=== PATIENT | female | born 1945 | race Caucasian/White ===

== ENCOUNTER → 2016-10-21 | Outpatient (REF) | payer MEDICARE, OTHER ==
[2016-10-21 16:01] LABS: BASO # 0.1 K/mm3 (0.0-0.2); BASO % 0.8 % (0.0-1.0); EOS # 0.2 K/mm3 (0.0-0.50); EOS % 1.5 % (0.0-3.0); LARGE UNSTAINED CELL # 0.2 K/mm3 (0.0-0.4); LARGE UNSTAINED CELL % 1.4 % (0.0-4.0); LYMPH % 22.1 % (24.0-44.0); MEAN CORPUSCULAR HEMOGLOBIN 28.4 pg (27.0-33.0); MEAN CORPUSCULAR HGB CONC 33.2 g/dl (32.0-36.5); MEAN CORPUSCULAR VOLUME 85.5 fl (80.0-96.0); MONO % 8.1 % (0.0-5.0); NEUTROPHILS # 8.3 K/mm3 (1.8-7.7); NEUTROPHILS % 66.1 % (36.0-66.0); PLATELET COUNT, AUTOMATED 270 k/mm3 (150-450); RED CELL DISTRIBUTION WIDTH 14.4 % (11.5-14.5); WHITE BLOOD COUNT 12.5 K/mm3 (4.0-10.0)
[2016-10-21 16:03] LABS: ALBUMIN 3.4 GM/DL (3.2-5.2); ALBUMIN/GLOBULIN RATIO 0.94 (1.00-1.93); ALKALINE PHOSPHATASE 73 U/L (45-117); ALT/SGPT 17 U/L (12-78); AMYLASE 45 U/L (25-115); ANION GAP 11 MEQ/L (8-16); AST/SGOT 9 U/L (15-37); BILIRUBIN,TOTAL 0.9 MG/DL (0.2-1.0); BLOOD UREA NITROGEN 16 MG/DL (7-18); CALCIUM LEVEL 8.9 MG/DL (8.8-10.2); CARBON DIOXIDE LEVEL 28 MEQ/L (21-32); CHLORIDE LEVEL 102 MEQ/L (98-107); GLOMERULAR FILTRATION RATE > 60.0 (>39); GLUCOSE, FASTING 87 MG/DL (83-110); POTASSIUM SERUM 3.5 MEQ/L (3.5-5.1); SODIUM LEVEL 141 MEQ/L (136-145)
== END ==
LOC: M LABDRAW1 15:21
PROVIDERS: ATTEND Family Medicine
DX: K57.92 Diverticulitis of intestine, part unspecified, without perforation or abscess without bleeding (principal)
CPT/HCPCS: 36415; 80053; 82150; 83690; 85025; G0463

== ENCOUNTER → 2016-10-25 | Outpatient (REF) | payer MEDICARE, OTHER ==
[2016-10-25 11:39] LABS: BASO % 0.7 % (0.0-1.0); EOS # 0.3 K/mm3 (0.0-0.50); EOS % 5.1 % (0.0-3.0); LARGE UNSTAINED CELL # 0.2 K/mm3 (0.0-0.4); LARGE UNSTAINED CELL % 3.3 % (0.0-4.0); LYMPH # 1.6 K/mm3 (1.5-4.5); LYMPH % 25.7 % (24.0-44.0); MEAN CORPUSCULAR HEMOGLOBIN 29.3 pg (27.0-33.0); MEAN CORPUSCULAR HGB CONC 33.8 g/dl (32.0-36.5); MEAN CORPUSCULAR VOLUME 86.8 fl (80.0-96.0); MONO # 0.5 K/mm3 (0.0-0.8); MONO % 8.1 % (0.0-5.0); NEUTROPHILS # 3.6 K/mm3 (1.8-7.7); NEUTROPHILS % 57.2 % (36.0-66.0); PLATELET COUNT, AUTOMATED 340 k/mm3 (150-450); RED CELL DISTRIBUTION WIDTH 13.1 % (11.5-14.5); WHITE BLOOD COUNT 6.2 K/mm3 (4.0-10.0)
== END ==
LOC: M SFHCPLAZ 08:19
PROVIDERS: ATTEND Physician Assistant Medical
DX: K57.92 Diverticulitis of intestine, part unspecified, without perforation or abscess without bleeding (principal)
CPT/HCPCS: 36415; 85025; G0463

== ENCOUNTER 2016-11-20 18:29 | Inpatient (IN) | payer MEDICARE, OTHER ==
[~2016-11-20] VITALS: Ht 152.4 cm; Wt 85.7 kg
[2016-11-20 20:03] VITALS: BP 121/63
[2016-11-20] MEDS ORDERED: NORCO, ANEXSIA 5/325MG TABLET (HYDROcodone/ACETAMINOPHEN) PO PRN (23:30)
[2016-11-20] MEDS ORDERED: IPRATROPIUM 0.5MG/ALBUTEROL 2.5MG INH SOL UD 3ML (DUONEB)(J7620) NEB PRN (23:30)
[2016-11-21] VITALS (10 sets, daily range): BP systolic 92–168; BP diastolic 58–79
[2016-11-21] MEDS: LR 1,000 ML IV SCH ×4 (00:01→20:06)
[2016-11-21] MEDS: MORPHINE 4 MG/ML 1ML SYRINGE IV PRN ×2 (00:01→01:45)
[2016-11-21 00:03] LABS: ANION GAP 9 MEQ/L (8-16); BLOOD UREA NITROGEN 12 MG/DL (7-18); CALCIUM LEVEL 7.5 MG/DL (8.8-10.2); CARBON DIOXIDE LEVEL 21 MEQ/L (21-32); CHLORIDE LEVEL 109 MEQ/L (98-107); CREATININE FOR GFR 0.77 MG/DL (0.55-1.02); GLOMERULAR FILTRATION RATE > 60.0 (>39); GLUCOSE, FASTING 113 MG/DL (83-110); POTASSIUM SERUM 3.5 MEQ/L (3.5-5.1); SODIUM LEVEL 139 MEQ/L (136-145)
[2016-11-21 00:07] LABS: BASO # 0.1 K/mm3 (0.0-0.2); BASO % 0.5 % (0.0-1.0); EOS # 0.2 K/mm3 (0.0-0.50); EOS % 1.3 % (0.0-3.0); LARGE UNSTAINED CELL # 0.2 K/mm3 (0.0-0.4); LARGE UNSTAINED CELL % 1.3 % (0.0-4.0); LYMPH # 1.5 K/mm3 (1.5-4.5); LYMPH % 9.2 % (24.0-44.0); MEAN CORPUSCULAR HEMOGLOBIN 28.2 pg (27.0-33.0); MEAN CORPUSCULAR VOLUME 88.1 fl (80.0-96.0); MONO # 0.6 K/mm3 (0.0-0.8); MONO % 4.4 % (0.0-5.0); NEUTROPHILS # 11.6 K/mm3 (1.8-7.7); NEUTROPHILS % 83.2 % (36.0-66.0); PLATELET COUNT, AUTOMATED 182 k/mm3 (150-450); RED CELL DISTRIBUTION WIDTH 14.3 % (11.5-14.5); WHITE BLOOD COUNT 13.9 K/mm3 (4.0-10.0)
[2016-11-21] MEDS ORDERED: HYDR25TAB PO (00:24)
[2016-11-21] MEDS ORDERED: IRBE75TA5 PO (00:24)
[2016-11-21] MEDS ORDERED: PROA1AER INH (00:24)
[2016-11-21] MEDS ORDERED: LIPI10TA PO (00:24)
[2016-11-21] MEDS ORDERED: PAXI10TA2 PO (00:24)
[2016-11-21] MEDS ORDERED: BIMA01SOL OU (00:24)
[2016-11-21] MEDS ORDERED: SING10TA32 PO (00:24)
[2016-11-21] MEDS ORDERED: VITA100066 PO (00:24)
[2016-11-21] MEDS ORDERED: OMEP20CA3 PO (00:24)
[2016-11-21] MEDS ORDERED: GASTROGRAFIN SOLUTION 30ML PO ONE (01:00)
[2016-11-21] MEDS ORDERED: GASTROGRAFIN SOLUTION 30ML (Q9963) PO ONE (01:30)
--- NOTE | 2016-11-21 03:20 | REPUSA ---
CLINICAL HISTORY: Assess for perforation TECHNIQUE: CT of the abdomen and pelvis was performed without intravenous contrast by obtaining julian guous CT axial slices from level of the heart to the proximal femoral diaphyses. Multiplanar reformat s were obtained in the coronal and sagittal projections. COMPARISON: None FINDINGS : LOWER CHEST: The lung bases history trace effusions otherwise unremarkable. Heart is normal in size. No pleural or pericardial effusion is seen. LIVER: The liver is normal in size and contour with a subcentimeter segment 6 low density lesion whic h is probable cyst. BILIARY SYSTEM: No intrahepatic biliary ductal dilatation is seen. The common duct is normal in calib er. The gallbladder is unremarkable with no focal or diffuse wall thickening seen. No pericholecystic fluid is seen. No calcified biliary calculi are identified. PANCREAS: The pancreas is normal in size, contour and density. No suspicious cystic lesion or ductal dilatation. SPLEEN: Normal in size with no suspicious cystic lesion. ADRENALS: Mild symmetric thickening otherwise are unremarkable. KIDNEYS/URETERS: The kidneys are normal in size. No calcified renal or ureteral calculi are seen. No hydroureteronephrosis. 5.0 cm right upper pole cortical cyst. URINARY BLADDER: The urinary bladder is unremarkable without calcified stone, wall thickening or dive rticula seen. UTERUS/ADNEXA: Few calcifications noted along the anterior upper body and fundus likely from small fi broids. Appendix are grossly within normal size limits. AORTA AND ILIAC ARTERIES: No aneurysmal dilatation of the aorta or iliac arteries is seen. LYMPH NODES: No enlarged adenopathy. GASTROINTESTINAL: Stomach, duodenum, small bowel, appendix on axial image [id number] are normal in caliber . There is distal colonic diverticulosis more prominently in the sigmoid colon. PERITONEUM/RETROPERITONEUM: There are multiple foci of free air in the lower esophageal, perigastric, perihepatic, pericholecystic, omental, and left lower quadrant mesosigmoid regions with air-fluid co llections measuring up to 4.1 x 2.0 cm and surrounding mesosigmoid stranding. ABDOMINAL/PELVIC WALL: No hernia is identified. OSSEOUS STRUCTURES/SOFT TISSUES: No suspicious osseous lesion, acute fracture, or soft tissue abnorma lity. L4-L5 facet degenerative changes. IMPRESSION : 1. Findings of perforated diverticulitis with multiple foci of pneumoperitoneum an left pelvic collec tions of hydropneumoperitoneum. 2. Trace bilateral effusion. 3. Right hepatic lobe and right renal cysts. 4. Few calcifications noted along the anterior upper body and fundus likely from small fibroids.
[2016-11-21] MEDS: CIPROFLOXACIN 400 MG in APPROPRIATE DILUENT 1 EA IV SCH ×2 (04:37→17:15)
[2016-11-21] MEDS: metroNIDAZOLE 500 MG in APPROPRIATE DILUENT 1 EA IV SCH ×3 (05:37→20:06)
[2016-11-21] MEDS ORDERED: ROCURONIUM BROMIDE 50 MG/5 ML VIAL As Ordered ONE (06:13)
[2016-11-21] MEDS ORDERED: PROPOFOL 200 MG/20 ML VIAL As Ordered ONE (06:13)
[2016-11-21] MEDS ORDERED: fentaNYL 250 MCG/5 ML INJECTION (J3010) As Ordered ONE (06:13)
[2016-11-21] MEDS ORDERED: MIDAZOLAM INJ 2 MG/2 ML VIAL (J2250) As Ordered ONE (06:13)
[2016-11-21] MEDS ORDERED: LIDOCAINE 2% INJ 100 MG/5 ML SDV (FOR ANES.) As Ordered ONE (06:13)
[2016-11-21] MEDS ORDERED: PHENYLephrine HCL 500 MCG/5 ML (100MCG/ML) SYRINGE (J2370) As Ordered ONE (07:24)
[2016-11-21] MEDS ORDERED: HYDROmorphone HCL 2 MG/ML 1ML VIAL (J1170) As Ordered ONE (07:41)
--- NOTE | 2016-11-21 07:48 | ECGEPIP ---
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
[2016-11-21] MEDS ORDERED: BUPIVACAINE HCL 0.25% 30 ML VIAL As Ordered ONE (08:14)
[2016-11-21] MEDS ORDERED: BUPIVACAINE LIPOSOME/PF 1.3% 20 ML VIAL (13.3MG/ML)(EXPAREL) As Ordered ONE (08:14)
[2016-11-21] MEDS ORDERED: hydroCHLOROthiazide 25 MG TAB PO SCH (09:00)
[2016-11-21] MEDS ORDERED: NEOSTIGMINE 1MG/ML 5 ML SYRINGE (J2710) As Ordered ONE (09:02)
[2016-11-21] MEDS ORDERED: ONDANSETRON 4MG/2ML VIAL (J2405) As Ordered ONE (09:02)
[2016-11-21] MEDS ORDERED: GLYCOPYRROLATE INJ 0.2 MG/ML 2 ML VIAL As Ordered ONE (09:03)
[2016-11-21] MEDS ORDERED: BUPIVACAINE LIPOSOME/PF 1.3% 20 ML VIAL (13.3MG/ML)(EXPAREL) XX ONE (09:15)
[2016-11-21] MEDS ORDERED: BUPIVACAINE HCL 0.25% 30 ML VIAL SC ONE (09:17)
[2016-11-21] MEDS ORDERED: MORPHINE PCA 1MG/ML 100ML CADD As Ordered ONE (10:01)
[2016-11-21] MEDS ORDERED: MORPHINE PCA 1MG/ML 100ML CADD IV PRN (10:30)
[2016-11-21] MEDS ORDERED: HYDROmorphone HCL 1 MG/ML SYRINGE (J1170) IV PRN (10:30)
[2016-11-21] MEDS ORDERED: diphenhydrAMINE INJ 50MG/ML VIAL (J1200) IV PRN (10:30)
[2016-11-21] MEDS ORDERED: ONDANSETRON 4MG/2ML VIAL (J2405) IV PRN ×2 (10:30)
[2016-11-21] MEDS ORDERED: fentaNYL 100 MCG/2 ML INJECTION (J3010) IV PRN (10:30)
[2016-11-21] MEDS ORDERED: NALBUPHINE HCL 10 MG/ML AMP (J2300) IV PRN (10:30)
[2016-11-21] MEDS ORDERED: EPIDURAL/PCA KEYS XX PRN (10:30)
[2016-11-21] MEDS ORDERED: NALOXONE INJ 0.4 MG/1 ML VIAL (J2310) IV PRN (10:30)
[2016-11-21] MEDS ORDERED: METOCLOPRAMIDE INJ 10MG/2ML VIAL (J2765) IV PRN (10:30)
[2016-11-21] MEDS ORDERED: LR 1,000 ML IV SCH (10:30)
[2016-11-21] MEDS: IRBESARTAN 75MG TABLET PO SCH (11:34)
[2016-11-21] MEDS: FLUTICASONE PROP 0.05% NASAL SPRAY 16 GM (FLONASE) SCH (11:35)
[2016-11-21] MEDS: PANTOPRAZOLE 40MG INJ (PROTONIX) (C9113) IV SCH (11:41)
[2016-11-21] MEDS: ACETAMINOPHEN TAB 650MG DOSE (2X325MG) PO PRN (17:16)
[2016-11-22 02:00] VITALS: BP 118/61
[2016-11-22] MEDS: CIPROFLOXACIN 400 MG in APPROPRIATE DILUENT 1 EA IV SCH ×2 (03:16→15:37)
[2016-11-22] MEDS: metroNIDAZOLE 500 MG in APPROPRIATE DILUENT 1 EA IV SCH ×3 (04:55→21:00)
[2016-11-22 06:00] VITALS: BP 117/69
[2016-11-22 06:12] LABS: BASO % 0.2 % (0.0-1.0); EOS # 0.2 K/mm3 (0.0-0.50); EOS % 1.8 % (0.0-3.0); LARGE UNSTAINED CELL # 0.3 K/mm3 (0.0-0.4); LARGE UNSTAINED CELL % 2.8 % (0.0-4.0); LYMPH # 1.5 K/mm3 (1.5-4.5); LYMPH % 14.8 % (24.0-44.0); MEAN CORPUSCULAR HEMOGLOBIN 27.6 pg (27.0-33.0); MEAN CORPUSCULAR HGB CONC 31.4 g/dl (32.0-36.5); MEAN CORPUSCULAR VOLUME 88.1 fl (80.0-96.0); MONO # 0.7 K/mm3 (0.0-0.8); MONO % 7.4 % (0.0-5.0); NEUTROPHILS # 7.2 K/mm3 (1.8-7.7); PLATELET COUNT, AUTOMATED 172 k/mm3 (150-450); RED CELL DISTRIBUTION WIDTH 13.9 % (11.5-14.5); WHITE BLOOD COUNT 9.8 K/mm3 (4.0-10.0)
[2016-11-22 06:33] LABS: ANION GAP 9 MEQ/L (8-16); BLOOD UREA NITROGEN 13 MG/DL (7-18); CALCIUM LEVEL 7.4 MG/DL (8.8-10.2); CARBON DIOXIDE LEVEL 23 MEQ/L (21-32); CHLORIDE LEVEL 109 MEQ/L (98-107); CREATININE FOR GFR 0.74 MG/DL (0.55-1.02); GLOMERULAR FILTRATION RATE > 60.0 (>39); GLUCOSE, FASTING 107 MG/DL (83-110); POTASSIUM SERUM 3.8 MEQ/L (3.5-5.1); SODIUM LEVEL 141 MEQ/L (136-145)
[2016-11-22] MEDS: LR 1,000 ML IV SCH ×2 (06:43→13:30)
[2016-11-22] MEDS: IRBESARTAN 75MG TABLET PO SCH (09:00)
[2016-11-22 10:00] VITALS: BP 118/58
[2016-11-22] MEDS: FLUTICASONE PROP 0.05% NASAL SPRAY 16 GM (FLONASE) SCH (10:17)
[2016-11-22] MEDS: PANTOPRAZOLE 40MG INJ (PROTONIX) (C9113) IV SCH (10:17)
[2016-11-22 14:00] VITALS: BP 114/56
[2016-11-22 18:00] VITALS: BP 134/69
[2016-11-22 22:00] VITALS: BP 149/76
[2016-11-23] MEDS: LR 1,000 ML IV SCH ×3 (00:23→15:32)
[2016-11-23 02:00] VITALS: BP 119/61
[2016-11-23] MEDS: CIPROFLOXACIN 400 MG in APPROPRIATE DILUENT 1 EA IV SCH ×2 (03:20→15:32)
[2016-11-23] MEDS: metroNIDAZOLE 500 MG in APPROPRIATE DILUENT 1 EA IV SCH ×3 (04:43→20:41)
[2016-11-23 06:00] VITALS: BP 133/61
[2016-11-23 06:23] LABS: BASO % 0.2 % (0.0-1.0); EOS # 0.3 K/mm3 (0.0-0.50); LARGE UNSTAINED CELL # 0.2 K/mm3 (0.0-0.4); LARGE UNSTAINED CELL % 2.6 % (0.0-4.0); LYMPH # 1.5 K/mm3 (1.5-4.5); LYMPH % 14.5 % (24.0-44.0); MEAN CORPUSCULAR HEMOGLOBIN 28.3 pg (27.0-33.0); MEAN CORPUSCULAR HGB CONC 32.2 g/dl (32.0-36.5); MEAN CORPUSCULAR VOLUME 87.9 fl (80.0-96.0); MONO # 0.9 K/mm3 (0.0-0.8); MONO % 10.2 % (0.0-5.0); NEUTROPHILS # 6.1 K/mm3 (1.8-7.7); NEUTROPHILS % 69.5 % (36.0-66.0); PLATELET COUNT, AUTOMATED 218 k/mm3 (150-450); WHITE BLOOD COUNT 8.8 K/mm3 (4.0-10.0)
[2016-11-23 06:54] LABS: ANION GAP 9 MEQ/L (8-16); BLOOD UREA NITROGEN 8 MG/DL (7-18); CALCIUM LEVEL 7.2 MG/DL (8.8-10.2); CARBON DIOXIDE LEVEL 24 MEQ/L (21-32); CHLORIDE LEVEL 106 MEQ/L (98-107); CREATININE FOR GFR 0.65 MG/DL (0.55-1.02); GLOMERULAR FILTRATION RATE > 60.0 (>39); GLUCOSE, FASTING 105 MG/DL (83-110); POTASSIUM SERUM 3.6 MEQ/L (3.5-5.1); SODIUM LEVEL 139 MEQ/L (136-145)
[2016-11-23 10:00] VITALS: BP 143/72
[2016-11-23] MEDS: FLUTICASONE PROP 0.05% NASAL SPRAY 16 GM (FLONASE) SCH (10:40)
[2016-11-23] MEDS: PANTOPRAZOLE 40MG INJ (PROTONIX) (C9113) IV SCH (10:40)
[2016-11-23] MEDS: IRBESARTAN 75MG TABLET PO SCH (10:41)
[2016-11-23 14:00] VITALS: BP 165/86
[2016-11-23] MEDS: KETOROLAC 30 MG/ML VIAL (J1885) IV SCH ×2 (17:20→21:57)
[2016-11-23 18:00] VITALS: BP 143/70
[2016-11-23] MEDS: PARoxetine 10MG TABLET PO SCH (20:40)
[2016-11-23 22:00] VITALS: BP 122/64
[2016-11-24] MEDS: KETOROLAC 30 MG/ML VIAL (J1885) IV SCH ×4 (03:57→22:00)
[2016-11-24] MEDS: CIPROFLOXACIN 400 MG in APPROPRIATE DILUENT 1 EA IV SCH ×2 (04:09→16:05)
[2016-11-24] MEDS: metroNIDAZOLE 500 MG in APPROPRIATE DILUENT 1 EA IV SCH ×2 (05:14→14:00)
[2016-11-24 06:00] VITALS: BP 157/75
[2016-11-24 06:15] LABS: BASO % 0.3 % (0.0-1.0); EOS # 0.3 K/mm3 (0.0-0.50); EOS % 4.4 % (0.0-3.0); LARGE UNSTAINED CELL # 0.1 K/mm3 (0.0-0.4); LARGE UNSTAINED CELL % 1.7 % (0.0-4.0); LYMPH # 0.8 K/mm3 (1.5-4.5); MEAN CORPUSCULAR HEMOGLOBIN 28.5 pg (27.0-33.0); MEAN CORPUSCULAR HGB CONC 32.5 g/dl (32.0-36.5); MEAN CORPUSCULAR VOLUME 87.8 fl (80.0-96.0); MONO # 0.7 K/mm3 (0.0-0.8); MONO % 9.9 % (0.0-5.0); NEUTROPHILS # 5.5 K/mm3 (1.8-7.7); NEUTROPHILS % 74.7 % (36.0-66.0); PLATELET COUNT, AUTOMATED 237 k/mm3 (150-450); RED CELL DISTRIBUTION WIDTH 13.8 % (11.5-14.5); WHITE BLOOD COUNT 7.3 K/mm3 (4.0-10.0)
[2016-11-24 06:27] LABS: ANION GAP 8 MEQ/L (8-16); BLOOD UREA NITROGEN 7 MG/DL (7-18); CALCIUM LEVEL 7.7 MG/DL (8.8-10.2); CARBON DIOXIDE LEVEL 27 MEQ/L (21-32); CHLORIDE LEVEL 105 MEQ/L (98-107); CREATININE FOR GFR 0.65 MG/DL (0.55-1.02); GLOMERULAR FILTRATION RATE > 60.0 (>39); GLUCOSE, FASTING 133 MG/DL (83-110); POTASSIUM SERUM 3.2 MEQ/L (3.5-5.1); SODIUM LEVEL 140 MEQ/L (136-145)
[2016-11-24 08:00] VITALS: BP 122/78
[2016-11-24] MEDS: ALVIMOPAN 12 MG CAPSULE (ENTEREG) PO SCH ×2 (11:03→20:21)
[2016-11-24] MEDS: PANTOPRAZOLE 40MG INJ (PROTONIX) (C9113) IV SCH (11:08)
[2016-11-24] MEDS: IRBESARTAN 75MG TABLET PO SCH (11:08)
[2016-11-24] MEDS: FLUTICASONE PROP 0.05% NASAL SPRAY 16 GM (FLONASE) SCH (11:08)
[2016-11-24 14:00] VITALS: BP 146/79
[2016-11-24] MEDS: POTASSIUM CHLORIDE 10 MEQ SR TABLET PO SCH (14:00)
[2016-11-24] MEDS: ONDANSETRON 4MG/2ML VIAL (J2405) IV PRN (17:35)
[2016-11-24] MEDS: METOCLOPRAMIDE INJ 10MG/2ML VIAL (J2765) IV PRN (18:55)
[2016-11-24] MEDS: PARoxetine 10MG TABLET PO SCH (20:21)
[2016-11-24] MEDS: metroNIDAZOLE (FLAGYL) 500 MG TAB PO SCH (21:54)
[2016-11-24 22:00] VITALS: BP 160/89
[2016-11-25] MEDS: ONDANSETRON 4MG/2ML VIAL (J2405) IV PRN ×2 (00:07→09:28)
[2016-11-25] MEDS: METOCLOPRAMIDE INJ 10MG/2ML VIAL (J2765) IV PRN ×2 (01:21→14:32)
[2016-11-25] MEDS: KETOROLAC 30 MG/ML VIAL (J1885) IV SCH ×5 (04:00→20:14)
[2016-11-25] MEDS: CIPROFLOXACIN 500 MG TAB PO SCH ×2 (05:30→17:19)
[2016-11-25] MEDS: metroNIDAZOLE (FLAGYL) 500 MG TAB PO SCH ×3 (05:30→20:13)
[2016-11-25 06:00] VITALS: BP 160/77
[2016-11-25 06:44] LABS: BASO % 0.2 % (0.0-1.0); EOS # 0.1 K/mm3 (0.0-0.50); EOS % 0.8 % (0.0-3.0); LARGE UNSTAINED CELL # 0.1 K/mm3 (0.0-0.4); LARGE UNSTAINED CELL % 1.4 % (0.0-4.0); LYMPH # 1.1 K/mm3 (1.5-4.5); LYMPH % 9.8 % (24.0-44.0); MEAN CORPUSCULAR HEMOGLOBIN 28.6 pg (27.0-33.0); MEAN CORPUSCULAR HGB CONC 32.6 g/dl (32.0-36.5); MEAN CORPUSCULAR VOLUME 87.7 fl (80.0-96.0); MONO # 0.6 K/mm3 (0.0-0.8); MONO % 6.4 % (0.0-5.0); NEUTROPHILS # 7.9 K/mm3 (1.8-7.7); NEUTROPHILS % 81.4 % (36.0-66.0); PLATELET COUNT, AUTOMATED 348 k/mm3 (150-450); RED CELL DISTRIBUTION WIDTH 13.9 % (11.5-14.5); WHITE BLOOD COUNT 9.8 K/mm3 (4.0-10.0)
[2016-11-25 07:02] LABS: ANION GAP 11 MEQ/L (8-16); BLOOD UREA NITROGEN 9 MG/DL (7-18); CALCIUM LEVEL 8.3 MG/DL (8.8-10.2); CARBON DIOXIDE LEVEL 23 MEQ/L (21-32); CHLORIDE LEVEL 107 MEQ/L (98-107); CREATININE FOR GFR 0.56 MG/DL (0.55-1.02); GLOMERULAR FILTRATION RATE > 60.0 (>39); GLUCOSE, FASTING 110 MG/DL (83-110); POTASSIUM SERUM 4.3 MEQ/L (3.5-5.1); SODIUM LEVEL 141 MEQ/L (136-145)
[2016-11-25 08:05] VITALS: BP 141/74
[2016-11-25] MEDS: FLUTICASONE PROP 0.05% NASAL SPRAY 16 GM (FLONASE) SCH ×2 (09:00→09:34)
[2016-11-25] MEDS: PANTOPRAZOLE 40MG INJ (PROTONIX) (C9113) IV SCH (09:31)
[2016-11-25] MEDS: POTASSIUM CHLORIDE 10 MEQ SR TABLET PO SCH (09:32)
[2016-11-25] MEDS: IRBESARTAN 75MG TABLET PO SCH (09:33)
[2016-11-25] MEDS: ALVIMOPAN 12 MG CAPSULE (ENTEREG) PO SCH ×2 (09:33→20:11)
[2016-11-25] MEDS ORDERED: MOM 30ML SUSPENSION UDC PO ONE (09:45)
--- NOTE | 2016-11-25 10:53 | REP ---
KUB, TWO VIEWS: HISTORY: Nausea. COMPARISON: 11/20/2016. A small amount of air is present in small and large intestine. There are no air fluid levels or dilated loops of intestine. An ostomy is present in the left lateral abdomen. Surgical richard and drainage tubing are present. IMPRESSION: Nonspecific bowel gas pattern. Signed by Wes Thompson MD 11/25/2016 10:53 A
[2016-11-25 12:10] VITALS: BP 163/77
[2016-11-25] MEDS: ACETAMINOPHEN TAB 650MG DOSE (2X325MG) PO PRN (14:31)
[2016-11-25] MEDS: PARoxetine 10MG TABLET PO SCH (20:11)
[2016-11-25 22:00] VITALS: BP 134/86
[2016-11-26] MEDS: KETOROLAC 30 MG/ML VIAL (J1885) IV SCH ×3 (04:14→16:15)
[2016-11-26] MEDS: CIPROFLOXACIN 500 MG TAB PO SCH ×2 (05:21→18:43)
[2016-11-26] MEDS: metroNIDAZOLE (FLAGYL) 500 MG TAB PO SCH ×3 (05:21→21:10)
[2016-11-26] MEDS: ONDANSETRON 4MG/2ML VIAL (J2405) IV PRN (05:48)
[2016-11-26 06:00] VITALS: BP 142/79
[2016-11-26 06:31] LABS: BASO % 0.3 % (0.0-1.0); EOS # 0.2 K/mm3 (0.0-0.50); EOS % 2.4 % (0.0-3.0); LARGE UNSTAINED CELL # 0.2 K/mm3 (0.0-0.4); LYMPH # 0.8 K/mm3 (1.5-4.5); LYMPH % 9.3 % (24.0-44.0); MEAN CORPUSCULAR HEMOGLOBIN 28.9 pg (27.0-33.0); MEAN CORPUSCULAR HGB CONC 33.5 g/dl (32.0-36.5); MEAN CORPUSCULAR VOLUME 86.2 fl (80.0-96.0); MONO # 0.6 K/mm3 (0.0-0.8); MONO % 6.1 % (0.0-5.0); NEUTROPHILS # 7.2 K/mm3 (1.8-7.7); NEUTROPHILS % 79.9 % (36.0-66.0); PLATELET COUNT, AUTOMATED 373 k/mm3 (150-450); RED CELL DISTRIBUTION WIDTH 13.8 % (11.5-14.5)
[2016-11-26 06:36] LABS: ANION GAP 11 MEQ/L (8-16); BLOOD UREA NITROGEN 12 MG/DL (7-18); CALCIUM LEVEL 7.7 MG/DL (8.8-10.2); CARBON DIOXIDE LEVEL 23 MEQ/L (21-32); CHLORIDE LEVEL 109 MEQ/L (98-107); CREATININE FOR GFR 0.67 MG/DL (0.55-1.02); GLOMERULAR FILTRATION RATE > 60.0 (>39); GLUCOSE, FASTING 89 MG/DL (83-110); POTASSIUM SERUM 3.9 MEQ/L (3.5-5.1); SODIUM LEVEL 143 MEQ/L (136-145)
[2016-11-26] MEDS: IRBESARTAN 75MG TABLET PO SCH (10:25)
[2016-11-26] MEDS: ALVIMOPAN 12 MG CAPSULE (ENTEREG) PO SCH ×2 (10:25→21:10)
[2016-11-26] MEDS: PANTOPRAZOLE 40MG INJ (PROTONIX) (C9113) IV SCH (10:25)
[2016-11-26] MEDS: POTASSIUM CHLORIDE 10 MEQ SR TABLET PO SCH (10:26)
[2016-11-26] MEDS: hydroCHLOROthiazide 25 MG TAB PO SCH (10:26)
[2016-11-26] MEDS: FLUTICASONE PROP 0.05% NASAL SPRAY 16 GM (FLONASE) SCH (10:27)
[2016-11-26] MEDS ORDERED: MAALOX 30 ML SUSP *UDC PO PRN (11:00)
[2016-11-26] MEDS: ENOXAPARIN 40 MG/0.4 ML SYRINGE (J1650) SC SCH (13:23)
[2016-11-26 14:00] VITALS: BP 140/76
[2016-11-26] MEDS: PARoxetine 10MG TABLET PO SCH (21:11)
[2016-11-26] MEDS: NORCO, ANEXSIA 5/325MG TABLET (HYDROcodone/ACETAMINOPHEN) PO PRN (21:12)
[2016-11-26 22:00] VITALS: BP 162/76
[2016-11-27 06:00] VITALS: BP 159/84
[2016-11-27] MEDS: metroNIDAZOLE (FLAGYL) 500 MG TAB PO SCH ×3 (06:02→21:43)
[2016-11-27] MEDS: CIPROFLOXACIN 500 MG TAB PO SCH ×2 (06:02→18:14)
[2016-11-27 06:19] LABS: ANION GAP 8 MEQ/L (8-16); BLOOD UREA NITROGEN 11 MG/DL (7-18); CALCIUM LEVEL 7.8 MG/DL (8.8-10.2); CARBON DIOXIDE LEVEL 25 MEQ/L (21-32); CHLORIDE LEVEL 109 MEQ/L (98-107); CREATININE FOR GFR 0.67 MG/DL (0.55-1.02); GLOMERULAR FILTRATION RATE > 60.0 (>39); GLUCOSE, FASTING 97 MG/DL (83-110); POTASSIUM SERUM 3.9 MEQ/L (3.5-5.1); SODIUM LEVEL 142 MEQ/L (136-145)
[2016-11-27 06:40] LABS: BASO % 0.4 % (0.0-1.0); EOS # 0.3 K/mm3 (0.0-0.50); EOS % 3.5 % (0.0-3.0); LARGE UNSTAINED CELL # 0.2 K/mm3 (0.0-0.4); LARGE UNSTAINED CELL % 1.9 % (0.0-4.0); LYMPH # 1.2 K/mm3 (1.5-4.5); LYMPH % 12.7 % (24.0-44.0); MEAN CORPUSCULAR HEMOGLOBIN 28.9 pg (27.0-33.0); MEAN CORPUSCULAR HGB CONC 33.4 g/dl (32.0-36.5); MEAN CORPUSCULAR VOLUME 86.5 fl (80.0-96.0); MONO # 0.6 K/mm3 (0.0-0.8); MONO % 6.9 % (0.0-5.0); NEUTROPHILS # 6.3 K/mm3 (1.8-7.7); NEUTROPHILS % 74.6 % (36.0-66.0); PLATELET COUNT, AUTOMATED 421 k/mm3 (150-450); WHITE BLOOD COUNT 8.4 K/mm3 (4.0-10.0)
[2016-11-27] MEDS: PANTOPRAZOLE 40MG TAB (PROTONIX) PO SCH (09:32)
[2016-11-27] MEDS: ALVIMOPAN 12 MG CAPSULE (ENTEREG) PO SCH ×2 (09:32→20:28)
[2016-11-27] MEDS: POTASSIUM CHLORIDE 10 MEQ SR TABLET PO SCH (09:32)
[2016-11-27] MEDS: hydroCHLOROthiazide 25 MG TAB PO SCH (09:32)
[2016-11-27] MEDS: ENOXAPARIN 40 MG/0.4 ML SYRINGE (J1650) SC SCH (09:33)
[2016-11-27] MEDS: ACETAMINOPHEN TAB 650MG DOSE (2X325MG) PO PRN (09:33)
[2016-11-27] MEDS: IRBESARTAN 75MG TABLET PO SCH (09:33)
[2016-11-27] MEDS: FLUTICASONE PROP 0.05% NASAL SPRAY 16 GM (FLONASE) SCH (09:34)
[2016-11-27 14:00] VITALS: BP 133/98
[2016-11-27] MEDS: PARoxetine 10MG TABLET PO SCH (20:28)
[2016-11-27 22:00] VITALS: BP 134/80
[2016-11-28] MEDS: metroNIDAZOLE (FLAGYL) 500 MG TAB PO SCH ×3 (05:53→20:57)
[2016-11-28] MEDS: CIPROFLOXACIN 500 MG TAB PO SCH ×2 (05:53→16:48)
[2016-11-28 06:00] VITALS: BP 156/86
[2016-11-28 06:33] LABS: BASO % 0.4 % (0.0-1.0); EOS # 0.2 K/mm3 (0.0-0.50); EOS % 2.6 % (0.0-3.0); LARGE UNSTAINED CELL # 0.2 K/mm3 (0.0-0.4); LARGE UNSTAINED CELL % 1.8 % (0.0-4.0); LYMPH # 1.8 K/mm3 (1.5-4.5); LYMPH % 16.6 % (24.0-44.0); MEAN CORPUSCULAR HEMOGLOBIN 29.2 pg (27.0-33.0); MEAN CORPUSCULAR HGB CONC 33.8 g/dl (32.0-36.5); MEAN CORPUSCULAR VOLUME 86.6 fl (80.0-96.0); MONO # 0.6 K/mm3 (0.0-0.8); MONO % 5.8 % (0.0-5.0); NEUTROPHILS # 7.2 K/mm3 (1.8-7.7); NEUTROPHILS % 72.8 % (36.0-66.0); PLATELET COUNT, AUTOMATED 491 k/mm3 (150-450); RED CELL DISTRIBUTION WIDTH 14.1 % (11.5-14.5); WHITE BLOOD COUNT 9.8 K/mm3 (4.0-10.0)
[2016-11-28 06:40] LABS: ANION GAP 8 MEQ/L (8-16); BLOOD UREA NITROGEN 7 MG/DL (7-18); CALCIUM LEVEL 8.4 MG/DL (8.8-10.2); CARBON DIOXIDE LEVEL 27 MEQ/L (21-32); CHLORIDE LEVEL 106 MEQ/L (98-107); CREATININE FOR GFR 0.67 MG/DL (0.55-1.02); GLOMERULAR FILTRATION RATE > 60.0 (>39); GLUCOSE, FASTING 105 MG/DL (83-110); POTASSIUM SERUM 4.3 MEQ/L (3.5-5.1); SODIUM LEVEL 141 MEQ/L (136-145)
[2016-11-28] MEDS: hydroCHLOROthiazide 25 MG TAB PO SCH (08:26)
[2016-11-28] MEDS: ALVIMOPAN 12 MG CAPSULE (ENTEREG) PO SCH ×2 (08:26→20:57)
[2016-11-28] MEDS: PANTOPRAZOLE 40MG TAB (PROTONIX) PO SCH (08:26)
[2016-11-28] MEDS: IRBESARTAN 75MG TABLET PO SCH (08:26)
[2016-11-28] MEDS: ENOXAPARIN 40 MG/0.4 ML SYRINGE (J1650) SC SCH (08:27)
[2016-11-28] MEDS: POTASSIUM CHLORIDE 10 MEQ SR TABLET PO SCH (08:27)
[2016-11-28] MEDS: FLUTICASONE PROP 0.05% NASAL SPRAY 16 GM (FLONASE) SCH (08:27)
[2016-11-28 14:00] VITALS: BP 153/82
[2016-11-28] MEDS: PARoxetine 10MG TABLET PO SCH (20:57)
[2016-11-28] MEDS: NORCO, ANEXSIA 5/325MG TABLET (HYDROcodone/ACETAMINOPHEN) PO PRN (21:46)
[2016-11-28 22:00] VITALS: BP 138/68
[2016-11-29] MEDS: CIPROFLOXACIN 500 MG TAB PO SCH (05:39)
[2016-11-29] MEDS: metroNIDAZOLE (FLAGYL) 500 MG TAB PO SCH (05:39)
[2016-11-29 06:00] VITALS: BP 147/67
[2016-11-29 09:50] VITALS: BP 147/67
[2016-11-29] MEDS: ALVIMOPAN 12 MG CAPSULE (ENTEREG) PO SCH (09:50)
[2016-11-29] MEDS: hydroCHLOROthiazide 25 MG TAB PO SCH (09:50)
[2016-11-29] MEDS: PANTOPRAZOLE 40MG TAB (PROTONIX) PO SCH (09:50)
[2016-11-29] MEDS: IRBESARTAN 75MG TABLET PO SCH (09:50)
[2016-11-29] MEDS: ENOXAPARIN 40 MG/0.4 ML SYRINGE (J1650) SC SCH (09:51)
[2016-11-29] MEDS: FLUTICASONE PROP 0.05% NASAL SPRAY 16 GM (FLONASE) SCH (09:51)
[2016-11-29] MEDS: POTASSIUM CHLORIDE 10 MEQ SR TABLET PO SCH (09:51)
[2016-11-29] MEDS ORDERED: NORCOTAB PO (10:48)
[2016-11-29] MEDS ORDERED: BACT800T5 PO (10:48)
[2016-11-29] MEDS ORDERED: [UNRECOGNIZED DRUG - SUPPLY] (10:54)
[2016-11-29] MEDS ORDERED: [UNRECOGNIZED DRUG - OTHER] (10:57)
[2016-11-29] MEDS ORDERED: [UNRECOGNIZED DRUG - OTHER] (10:57)
[2016-11-29] MEDS ORDERED: [UNRECOGNIZED DRUG - OTHER] XX (10:59)
[2016-11-29] MEDS ORDERED: [UNRECOGNIZED DRUG - CODE] XX (11:01)
[2016-11-29] MEDS ORDERED: [UNRECOGNIZED DRUG - CODE] XX (11:03)
--- NOTE | 2016-12-14 18:45 | DSES ---
DATE OF ADMISSION: 11/20/2016 DATE OF DISCHARGE: 11/29/2016 DISCHARGE DIAGNOSES: 1. Perforated diverticulitis with generalized peritonitis. 2. Sepsis, resolved. 3. Moderate obesity. DISCHARGE MEDICATIONS: Continued medications: - albuterol sulfate - ProAir HFA 2 puffs inhalations every 4 hours as needed - atorvastatin 10 mg by mouth daily - Lumigan both eyes daily - cholecalciferol 1000 units by mouth daily - hydrochlorothiazide 25 mg by mouth daily - irbesartan 75 mg by mouth daily - montelukast 10 mg by mouth daily - omeprazole 20 mg by mouth daily - paroxetine 10 mg by mouth daily New prescriptions: - acetaminophen/hydrocodone 5/325 mg tablet one tablet by mouth every 4 hours as needed for pain - iodoform packing as directed - Bactrim DS one tablet by mouth twice a day for 14 days - colostomy flange and appliance PROCEDURE PERFORMED DURING ADMISSION: Exploratory laparotomy, lysis of adhesions, sigmoid colon resection, and colostomy done 11/21/2016. PATIENT'S CONDITION ON DISCHARGE: Improved. Sepsis resolved. Patient with a new colostomy. SUMMARY OF HOSPITAL COURSE: Ms. Saucedo is a 71-year-old female who was admitted at [facility] with recurrent diverticulitis. Initially, imaging studies did not show any perforation. White count was only mildly elevated. Her symptoms worsened during the admission. On followup x-ray was found to have free air underneath her left hemidiaphragm. We were contacted, and the patient subsequently transmitted under our care. On admission she was given intravenous (IV) fluid hydration and further worked up with a followup CT scan showing a moderate amount of inflammation with air tracking from the sigmoid colon. She was advised surgery, which she agreed to. She underwent sigmoid colon resection and colostomy on November 21 in the morning. She tolerated this procedure. She returned to the medical/surgical floor. Brisk IV fluid hydration was continued. We continued her on Invanz 1 gram IV daily. Her postoperative course was relatively straightforward and uneventful. We waited a bit until her ileus resolved. Once she was having function through her colostomy, she was started on liquid and advance as she tolerated. Initially had some episodes of vomiting a couple of days after we started diet. We went back a bit on her diet, and her colostomy started to function better. She was very compliant with ambulation. She was doing her incentive spirometers. Her leukocytosis resolved. She was able to tolerate regular diet. She was instructed on her care of her colostomy, and when she was comfortable with taking care of her colostomy subsequently discharged with close followup with [facility] nursing. The patient was discharged on Bactrim, to continue a total of 14-day course. On discharge she is tolerating diet. Her colostomy has been functioning. Her midline incision is being lightly packed with an iodoform dressing in between the richard.
--- NOTE | 2016-12-15 00:23 | RO ---
DATE OF PROCEDURE: 11/21/2016 PREOPERATIVE DIAGNOSES: Perforated diverticulitis, generalized peritonitis. POSTOPERATIVE DIAGNOSES: Perforated diverticulitis, generalized peritonitis. PROCEDURE PERFORMED: Exploratory laparotomy, lysis of adhesions, sigmoid colon resection, colostomy and Gema's pouch. SURGEON: Dr. Ricco Fraser CONTACT CLERK: ANESTHESIA: General anesthesia ESTIMATED BLOOD LOSS: 100 mL. COMPLICATIONS: None. The patient remained stable throughout the procedure. DESCRIPTION OF PROCEDURE: The patient is a 71-year-old female, moderately obese, body mass index (BMI) of 37, transferred from [facility] for which she was admitted for diverticulitis, roughly 2 days prior. Her condition worsened and on followup x-ray shows free air under her left hemidiaphragm, suspicious for perforation; thus, she was transferred to our institution for surgical care. On examination, she has generalized abdominal peritonitis. Her CT scan confirms findings of what most likely is perforated diverticulitis. She was advised surgery and after full discussion of the risks and benefits, the patient has consented to the surgery. She received Invanz 1 gram IV prior to the operating room, which was continued perioperatively. The patient was brought to the operating room, placed on the table. Compression boots placed for deep venous thrombosis (DVT) prophylaxis. General endotracheal anesthesia started without any complications. Her abdomen prepped and draped in usual sterile fashion. After surgical time-out, we began our surgery. A generous midline incision starting from above the umbilicus, extending to her symphysis pubis was created and deepened through the layers of the abdomen. We made entry into the abdomen close to the umbilicus. We immediately noted greenish, murky fluid, which we suctioned off and sent for cultures. The fascial incision was lengthened throughout the hole of the skin incision. A [place] self-retaining retractor was placed, the small bowel was retracted toward the upper abdomen. Over towards the pelvis, sigmoid colon was found, which was pretty heavily stuck towards the right side of the pelvic wall, deep into the pelvis. We could not immediately bring up the sigmoid colon. Thus, we freed up the small bowel, mainly the terminal ileum, likewise the cecum from the attachments towards the right side. The left colon was freed up from its lateral attachment to abdominal wall, so we could have proximal control of the colon. I chose an area of the proximal sigmoid colon which is relatively floppy and free of inflammation. Using a SHAHZAD stapler with a green load, the colon was divided at this area. We then antegradely dissected the mesentery, making sure to identify the ureter in its course as it enters into the pelvis and dissect it away from our surgical incision. Using the LigaSure device, the sigmoid colon mesentery was divided close to the inflamed colon so as to avoid injury to the ureter. The peritoneal attachments laterally on both sides were opened up and re-entered just behind the rectal mesocolon and carefully dissected this free off. This allowed us entry into the pelvis. Using my hand to guide the dissection both on the left and right sides, we were able to free up the sigmoid colon, the inflamed area, likewise perforation was noted. There was ischemic portion towards the right side of the sigmoid colon where the perforation was noted. The inflammation caused the colon to be quite fixed and immobile. The inflammation seemed to extend to the proximal rectum. I was able to get into an area relatively soft, though mildly inflamed, we worked on doing this area. Initially the contour would not fit the area; thus we trimmed the colon mesentery with a few firings of an [place] 60 mm stapler with a blue load until it allowed us to get a contour TA stapler around the inflamed colon. When we were able to do this, the rectum was divided. The specimen was passed off. We used about 5 liters of warm saline to irrigate. I reinforced my rectal stump staple line with #3-0 Prolene in a running fashion and cut this with a long tail to help us identify later on when she returns for reversal of her colostomy. Once we were sure of adequate hemostasis in the pelvis, I further freed up the descending colon up towards close to the splenic flexure as much as the incision allowed us. To visualize this, I further increased the superior portion of the incision for us to be able to do this. I chose an area that I previously marked preoperatively prior to the incision over on the left side, just above her umbilicus for site of the colostomy. A circular incision was created. This was deepened through the layers of the abdominal wall, and the fascia was opened up. The tract goes into the rectus muscle, the posterior sheath was likewise opened up. We passed off the end of the colon through the abdominal wall. Due to the depth of her pannus, we had to cut down on the mesentery of the passing colon. Still having some difficulty getting enough length across the colon; thus, I further freed up both the medial and lateral attachments of the descending colon to gain some length. Despite this effort, we were still only able to get enough length to most likely mature the colostomy flush rather than in a Mireya fashion. After doing so, I left a #19 round [place] drain in the pelvis. We changed gown and gloves prior to our skin closure. We closed the fascia with one loop PDS in a running fashion. The subcutaneous space was washed off. We closed the skin loosely with richard putting some Telfa yuli in between the staple line. The colostomy was matured mostly in a flat fashion. There was some duskiness in the stump of the colon but relatively still healthy appearing. Dressings were placed on the incision, likewise the colostomy flange was placed. The patient was then promptly awakened, extubated, brought to recovery room stable
== END 2016-11-29 13:41 | disposition home health service (06) | DRG 329 ==
LOC: M MSPAV 22:06
PROVIDERS: ADMIT Surgery; ATTEND Surgery
PROC: 0D1M0J4 Bypass Descending Colon to Cutaneous with Synthetic Substitute, Open Approach (ICD-10-PCS; 2016-11-21)
PROC: 0DBN0ZZ Excision of Sigmoid Colon, Open Approach (ICD-10-PCS; principal; 2016-11-21 05:23)
DX: K57.20 Diverticulitis of large intestine with perforation and abscess without bleeding (principal); A41.9 Sepsis, unspecified organism; K56.7 Ileus, unspecified; K66.0 Peritoneal adhesions (postprocedural) (postinfection); E66.9 Obesity, unspecified; Z68.36 Body mass index [BMI] 36.0-36.9, adult

== ENCOUNTER → 2017-01-24 | Outpatient (CLI) | payer MEDICARE, BC, OTHER ==
[~2017-01-24] MED LIST: BACT800T5 PO; BIMA01SOL OU; HYDR25TAB PO; IRBE75TA5 PO; LIPI10TA PO; NORCOTAB PO; OMEP20CA3 PO; PAXI10TA2 PO; PRESCAP PO; PROA1AER INH; SING10TA32 PO; VITA100066 PO; [UNRECOGNIZED DRUG - CODE] XX; [UNRECOGNIZED DRUG - CODE] XX; [UNRECOGNIZED DRUG - OTHER]; [UNRECOGNIZED DRUG - OTHER]; [UNRECOGNIZED DRUG - OTHER] XX; [UNRECOGNIZED DRUG - SUPPLY]
[2017-01-24 12:27] LABS: ALBUMIN 3.2 GM/DL (3.2-5.2); ALKALINE PHOSPHATASE 59 U/L (45-117); ALT/SGPT 20 U/L (12-78); ANION GAP 6 MEQ/L (8-16); AST/SGOT 13 U/L (15-37); BILIRUBIN,TOTAL 0.4 MG/DL (0.2-1.0); BLOOD UREA NITROGEN 15 MG/DL (7-18); CALCIUM LEVEL 8.5 MG/DL (8.8-10.2); CARBON DIOXIDE LEVEL 31 MEQ/L (21-32); CHLORIDE LEVEL 107 MEQ/L (98-107); CREATININE FOR GFR 0.65 MG/DL (0.55-1.02); GLOMERULAR FILTRATION RATE > 60.0 (>39); GLUCOSE, FASTING 94 MG/DL (83-110); POTASSIUM SERUM 3.5 MEQ/L (3.5-5.1); SODIUM LEVEL 144 MEQ/L (136-145); TOTAL PROTEIN 6.4 GM/DL (6.4-8.2)
[2017-01-24 12:28] LABS: MEAN CORPUSCULAR HEMOGLOBIN 28.1 pg (27.0-33.0); MEAN CORPUSCULAR HGB CONC 32.3 g/dl (32.0-36.5); RED CELL DISTRIBUTION WIDTH 14.2 % (11.5-14.5); WHITE BLOOD COUNT 6.4 K/mm3 (4.0-10.0)
== END ==
LOC: M LRY 09:27
PROVIDERS: ATTEND Surgery
DX: K57.20 Diverticulitis of large intestine with perforation and abscess without bleeding (principal)

== ENCOUNTER → 2017-02-02 | Outpatient (CLI) | payer MEDICARE, BC, OTHER ==
[~2017-02-02] VITALS: Ht 152.4 cm; Wt 73.0 kg
[~2017-02-02] MED LIST changes: +LIDOCAINE 2% INJ 100 MG/5 ML SDV (FOR ANES.) As Ordered ONE; +NS 1,000 ML IV SCH; +PROPOFOL 200 MG/20 ML VIAL As Ordered ONE
--- NOTE | 2017-02-02 09:24 | ROOR ---
Patient Name: Yolis Saucedo Procedure Date: 02/02/2017 8:50 AM Date of : 1945 Age: 71 Room: [facility] Gender: Female Note Status: Finalized Procedure: Colonoscopy Indications: Preoperative assessment, Follow-up of diverticulitis Providers: Ricco Fraser MD Referring MD: Rafael Rosa MD Requesting Provider: Medicines: The level of sedation administered was minimal, Monitored Anesthesia Care Complications: No immediate complications. Procedure: Pre-Anesthesia Assessment: - Prior to the procedure, a History and Physical was performed, and patient medications and allergies were reviewed. The patient is competent. The risks and benefits of the procedure and the sedation options and risks were discussed with the patient. All questions were answered and informed consent was obtained. Patient identification and proposed procedure were verified by the physician, the nurse and the anesthesiologist in the endoscopy suite. Mental Status Examination: alert and oriented. Airway Examination: normal oropharyngeal airway and neck mobility. Respiratory Examination: clear to auscultation. CV Examination: normal. Prophylactic Antibiotics: The patient does not require prophylactic antibiotics. Prior Anticoagulants: The patient has taken aspirin, last dose was day of procedure. ASA Grade Assessment: II - A patient with mild systemic disease. After reviewing the risks and benefits, the patient was deemed in satisfactory condition to undergo the procedure. The anesthesia plan was to use monitored anesthesia care (MAC). Immediately prior to administration of medications, the patient was re-assessed for adequacy to receive sedatives. The heart rate, respiratory rate, oxygen saturations, blood pressure, adequacy of pulmonary ventilation, and response to care were monitored throughout the procedure. The physical status of the patient was re-assessed after the procedure. The Colonoscope was introduced through the sigmoid colostomy and advanced to the cecum, identified by appendiceal orifice and ileocecal valve. The colonoscopy was somewhat difficult. The patient tolerated the procedure well. The quality of the bowel preparation was good. Findings: The perianal exam findings include non-thrombosed external hemorrhoids. Scattered small-mouthed diverticula were found in the descending colon. There was no evidence of diverticular bleeding. colonoscopy from anus to rectal stump shows stump up to 25 cms. healthy, Estimated blood loss: none. Impression: - Non-thrombosed external hemorrhoids found on perianal exam. - Mild diverticulosis in the descending colon. There was no evidence of diverticular bleeding. - No specimens collected. Recommendation: - Discharge patient to home (ambulatory). - High fiber diet. - Return to my office in 2 weeks. Ricco Fraser MD Ricco Fraser MD 02/02/2017 9:23:53 AM This report has been signed electronically. Number of Addenda: 0 Note Initiated On: 02/02/2017 8:50 AM Estimated Blood Loss: Estimated blood loss: none.
[2017-02-02 09:35] VITALS: BP 145/69
== END | disposition home or self-care (01) ==
LOC: M OPP 07:17
PROVIDERS: ATTEND Surgery
DX: Z01.818 Encounter for other preprocedural examination (principal); K57.20 Diverticulitis of large intestine with perforation and abscess without bleeding; Z93.3 Colostomy status; K57.92 Diverticulitis of intestine, part unspecified, without perforation or abscess without bleeding; K64.4 Residual hemorrhoidal skin tags; Z86.010 Personal history of colon polyps; I10 Essential (primary) hypertension; E78.5 Hyperlipidemia, unspecified; R12 Heartburn; M54.2 Cervicalgia; Z86.73 Personal history of transient ischemic attack (TIA), and cerebral infarction without residual deficits; Z78.0 Asymptomatic menopausal state; J45.909 Unspecified asthma, uncomplicated; J44.9 Chronic obstructive pulmonary disease, unspecified; Z87.891 Personal history of nicotine dependence; Z88.8 Allergy status to other drugs, medicaments and biological substances; Z88.3 Allergy status to other anti-infective agents; Z79.899 Other long term (current) drug therapy; Z79.82 Long term (current) use of aspirin; Z80.0 Family history of malignant neoplasm of digestive organs

== ENCOUNTER → 2017-02-15 | Outpatient (REF) | payer MEDICARE, OTHER ==
[~2017-02-15] MED LIST changes: -LIDOCAINE 2% INJ 100 MG/5 ML SDV (FOR ANES.) As Ordered ONE; -NS 1,000 ML IV SCH; -PROPOFOL 200 MG/20 ML VIAL As Ordered ONE
[2017-02-15 11:48] LABS: BASO # 0.1 K/mm3 (0.0-0.2); BASO % 1.1 % (0.0-1.0); EOS # 0.2 K/mm3 (0.0-0.50); EOS % 3.2 % (0.0-3.0); LARGE UNSTAINED CELL # 0.1 K/mm3 (0.0-0.4); LARGE UNSTAINED CELL % 1.4 % (0.0-4.0); LYMPH # 2.7 K/mm3 (1.5-4.5); LYMPH % 35.7 % (24.0-44.0); MEAN CORPUSCULAR HGB CONC 33.1 g/dl (32.0-36.5); MEAN CORPUSCULAR VOLUME 87.6 fl (80.0-96.0); MONO # 0.4 K/mm3 (0.0-0.8); MONO % 5.3 % (0.0-5.0); NEUTROPHILS # 3.9 K/mm3 (1.8-7.7); NEUTROPHILS % 53.3 % (36.0-66.0); PLATELET COUNT, AUTOMATED 297 k/mm3 (150-450); RED CELL DISTRIBUTION WIDTH 14.1 % (11.5-14.5); WHITE BLOOD COUNT 7.2 K/mm3 (4.0-10.0)
[2017-02-15 12:30] LABS: ALBUMIN 3.3 GM/DL (3.2-5.2); ALKALINE PHOSPHATASE 61 U/L (45-117); ALT/SGPT 16 U/L (12-78); AMYLASE 52 U/L (25-115); ANION GAP 7 MEQ/L (8-16); AST/SGOT 11 U/L (15-37); BILIRUBIN,TOTAL 0.4 MG/DL (0.2-1.0); BLOOD UREA NITROGEN 18 MG/DL (7-18); CALCIUM LEVEL 8.9 MG/DL (8.8-10.2); CARBON DIOXIDE LEVEL 31 MEQ/L (21-32); CHLORIDE LEVEL 106 MEQ/L (98-107); CREATININE FOR GFR 0.77 MG/DL (0.55-1.02); GLOMERULAR FILTRATION RATE > 60.0 (>39); GLUCOSE, FASTING 85 MG/DL (83-110); POTASSIUM SERUM 4.1 MEQ/L (3.5-5.1); SODIUM LEVEL 144 MEQ/L (136-145); TOTAL PROTEIN 6.6 GM/DL (6.4-8.2)
== END ==
LOC: M SFHCPLAZ 08:40
PROVIDERS: ATTEND Family Medicine
DX: K57.92 Diverticulitis of intestine, part unspecified, without perforation or abscess without bleeding (principal)

== ENCOUNTER → 2017-02-24 | Outpatient (REF) | payer MEDICARE, OTHER ==
[2017-02-24 12:36] LABS: ALBUMIN 3.4 GM/DL (3.2-5.2); ALKALINE PHOSPHATASE 59 U/L (45-117); ALT/SGPT 22 U/L (12-78); ANION GAP 7 MEQ/L (8-16); AST/SGOT 18 U/L (15-37); BILIRUBIN,TOTAL 0.6 MG/DL (0.2-1.0); BLOOD UREA NITROGEN 21 MG/DL (7-18); CARBON DIOXIDE LEVEL 31 MEQ/L (21-32); CHLORIDE LEVEL 104 MEQ/L (98-107); CREATININE FOR GFR 0.75 MG/DL (0.55-1.02); GLOMERULAR FILTRATION RATE > 60.0 (>39); GLUCOSE, FASTING 86 MG/DL (83-110); SODIUM LEVEL 142 MEQ/L (136-145); TOTAL PROTEIN 6.8 GM/DL (6.4-8.2)
== END ==
LOC: M LRY 11:22
PROVIDERS: ATTEND Surgery
DX: K57.20 Diverticulitis of large intestine with perforation and abscess without bleeding (principal); Z93.3 Colostomy status

== ENCOUNTER → 2017-03-31 | Outpatient (CLI) | payer MEDICARE, BC, OTHER ==
[~2017-03-31] MED LIST changes: +ASPI1TAB PO; +CIPR500T89 PO; +FLAG500T PO; +KETO10TAB PO
[2017-03-31 16:34] LABS: MEAN CORPUSCULAR HEMOGLOBIN 28.5 pg (27.0-33.0); MEAN CORPUSCULAR HGB CONC 33.5 g/dl (32.0-36.5); RED CELL DISTRIBUTION WIDTH 13.2 % (11.5-14.5); WHITE BLOOD COUNT 7.8 K/mm3 (4.0-10.0)
[2017-03-31 17:37] LABS: ALBUMIN 3.7 GM/DL (3.2-5.2); ALBUMIN/GLOBULIN RATIO 0.9 (1.00-1.93); BILIRUBIN,TOTAL 0.3 MG/DL (0.2-1.0); CALCIUM LEVEL 8.9 MG/DL (8.8-10.2); CREATININE FOR GFR 1.67 MG/DL (0.55-1.02); TOTAL PROTEIN 7.8 GM/DL (6.4-8.2)
== END ==
LOC: M LAB 15:57
PROVIDERS: ATTEND Surgery
DX: Z43.2 Encounter for attention to ileostomy (principal); N17.9 Acute kidney failure, unspecified

== ENCOUNTER → 2017-04-04 | Outpatient (CLI) | payer MEDICARE, BC, OTHER ==
[~2017-04-04] MED LIST changes: +ASPI81TAEC PO; +CIPR-249 PO; -CIPR500T89 PO; +DIPH2.5T14 PO; +K-TA10TA2 PO; +LOMO2.5T PO; +MOME50SP; +PAXI10TA12 PO; -PAXI10TA2 PO; -PROA1AER INH; +PROAAER10 INH; +VITMTA PO
--- NOTE | 2017-04-04 18:39 | REP ---
Clinical: Acute renal failure. Technique: Real time romero scale ultrasound evaluation using curved array transducer. Findings: A 6.2 x 5.6 x 5.3 cm possibly septated upper pole right renal cyst is identified. The kidneys are otherwise normal in reniform shape, size and echogenicity. No nephrolithiasis, hydroureternephrosis, or mass lesion is appreciated. No perinephric fluid collections are identified. Right kidney measures 13.0 x 4.7 x 6.1 cm. Left kidney measures 10.4 x 5.4 x 4.2 cm. The bladder is incompletely distended and grossly normal in appearance. Impression: 6.2 cm right upper pole renal cyst possibly septated. Otherwise normal renal ultrasound without hydronephrosis. Signed by Ángel Morrell MD 04/04/2017 06:30 P
== END ==
LOC: M RAD 16:56
PROVIDERS: ATTEND Family Medicine
DX: N17.9 Acute kidney failure, unspecified (principal); N28.1 Cyst of kidney, acquired
CPT/HCPCS: 51798; 76775; 80069; G0463

== ENCOUNTER → 2017-04-04 | Outpatient (REF) | payer MEDICARE, OTHER ==
[~2017-04-04] MED LIST changes: -ASPI81TAEC PO; -CIPR-249 PO; +CIPR500T89 PO; -DIPH2.5T14 PO; -K-TA10TA2 PO; -LOMO2.5T PO; -MOME50SP; -PAXI10TA12 PO; +PAXI10TA2 PO; +PROA1AER INH; -PROAAER10 INH; -VITMTA PO
[2017-04-04 13:23] LABS: ALBUMIN 3.7 GM/DL (3.2-5.2); CALCIUM LEVEL 9.6 MG/DL (8.8-10.2); CREATININE FOR GFR 1.5 MG/DL (0.55-1.02); GLOMERULAR FILTRATION RATE 36.2 (>39); POTASSIUM SERUM 3.7 MEQ/L (3.5-5.1)
== END ==
LOC: M SFHCPLAZ 10:24
PROVIDERS: ATTEND Nurse Practitioner Family
DX: N17.9 Acute kidney failure, unspecified (principal)

== ENCOUNTER → 2017-04-13 | Outpatient (REF) | payer MEDICARE, OTHER ==
[~2017-04-13] MED LIST changes: +ASPI81TAEC PO; +CIPR-249 PO; -CIPR500T89 PO; +DIPH2.5T14 PO; +K-TA10TA2 PO; +LOMO2.5T PO; +MOME50SP; +PAXI10TA12 PO; -PAXI10TA2 PO; -PROA1AER INH; +PROAAER10 INH; +VITMTA PO
[2017-04-13 11:08] LABS: BASO % 0.5 % (0.0-1.0); EOS # 0.2 K/mm3 (0.0-0.50); EOS % 2.9 % (0.0-3.0); LARGE UNSTAINED CELL # 0.2 K/mm3 (0.0-0.4); LARGE UNSTAINED CELL % 2.8 % (0.0-4.0); LYMPH # 2.4 K/mm3 (1.5-4.5); MEAN CORPUSCULAR HEMOGLOBIN 28.1 pg (27.0-33.0); MEAN CORPUSCULAR HGB CONC 32.7 g/dl (32.0-36.5); MEAN CORPUSCULAR VOLUME 85.9 fl (80.0-96.0); MONO # 0.6 K/mm3 (0.0-0.8); MONO % 7.1 % (0.0-5.0); NEUTROPHILS # 4.3 K/mm3 (1.8-7.7); NEUTROPHILS % 55.7 % (36.0-66.0); PLATELET COUNT, AUTOMATED 259 k/mm3 (150-450); RED CELL DISTRIBUTION WIDTH 13.1 % (11.5-14.5); WHITE BLOOD COUNT 7.7 K/mm3 (4.0-10.0)
[2017-04-13 11:28] LABS: ALBUMIN 3.7 GM/DL (3.2-5.2); ALBUMIN/GLOBULIN RATIO 0.86 (1.00-1.93); BILIRUBIN,TOTAL 0.6 MG/DL (0.2-1.0); CALCIUM LEVEL 9.8 MG/DL (8.8-10.2); CREATININE FOR GFR 1.54 MG/DL (0.55-1.02); GLOMERULAR FILTRATION RATE 35.2 (>39); PERCENT SATURATION 26.4 % (13.2-37.4)
== END ==
LOC: M SFHCPLAZ 09:11
PROVIDERS: ATTEND Family Medicine
DX: E78.2 Mixed hyperlipidemia (principal); I10 Essential (primary) hypertension; R73.01 Impaired fasting glucose; E55.9 Vitamin D deficiency, unspecified

== ENCOUNTER → 2017-05-16 | Outpatient (REF) | payer MEDICARE, OTHER ==
[2017-05-16 12:21] LABS: ANION GAP 9 MEQ/L (8-16); BLOOD UREA NITROGEN 16 MG/DL (7-18); CALCIUM LEVEL 8.8 MG/DL (8.8-10.2); CARBON DIOXIDE LEVEL 24 MEQ/L (21-32); CHLORIDE LEVEL 108 MEQ/L (98-107); CREATININE FOR GFR 0.91 MG/DL (0.55-1.02); GLOMERULAR FILTRATION RATE > 60.0 (>39); GLUCOSE, FASTING 79 MG/DL (83-110); POTASSIUM SERUM 4.3 MEQ/L (3.5-5.1); SODIUM LEVEL 141 MEQ/L (136-145)
== END ==
LOC: M SFHCPLAZ 09:04
PROVIDERS: ATTEND Physician Assistant Medical
DX: I10 Essential (primary) hypertension (principal)

== ENCOUNTER → 2017-05-17 | Outpatient (CLI) | payer MEDICARE, BC, OTHER ==
--- NOTE | 2017-05-17 09:46 | REP ---
NUCLEAR RENAL SCAN WITH FLOW AND FUNCTION AND GFR EVALUATION: Following the intravenous administration of 8.8 mCi of technetium 99m MAG-3, immediate flow images are obtained in the posterior projections showing somewhat greater degree of perfusion of the left kidney compared to the right. Delayed renal function images are performed every minute for a period of 30 minutes in the posterior projection. Photopenic area in the region of the upper pole of the right kidney is compatible with cyst seen on prior ultrasound 04/04/2017. There is bilateral excretion and cortical washout with mild prominence of the pelvicaliceal systems bilaterally which gradually diminished during the exam. Split function is 52.3% on the left and 47.7% on the right. Time to peak is delayed bilaterally at 4 minute. T1/2 could not be calculated bilaterally as it is in excess of 30 minutes. Renal function curves are moderately shallow in their downward slopes. There is very mild post void residual in the urinary bladder after voiding. Following the intravenous administration of 3.3 mCi of technetium 99m DTPA, imaging of the kidneys is performed to evaluate GFR. Split function is 56.6% on the left and 43.4% on the right. Renal counts are obtained bilaterally. GFR on the left is 24.2 mL per minute and on the right 18.6 mL per minute. Normalized GFR per patient body surface area is 42.7 mL per minute. IMPRESSION: Moderately compromised renal function bilaterally without evidence of urinary tract obstruction. Normalized GFR per patient body surface area 42.7 mL per minute. Signed by Jm Faulkner MD 05/17/2017 11:58 A
== END ==
LOC: M RAD 07:48
PROVIDERS: ATTEND Physician Assistant Medical
DX: N17.9 Acute kidney failure, unspecified (principal)
CPT/HCPCS: 78707; A9539; A9562

== ENCOUNTER → 2017-05-19 | Outpatient (CLI) | payer MEDICARE, BC ==
--- NOTE | 2017-05-19 10:51 | REPMRS ---
Patient History The patient states she has not had a clinical breast exam in over a year. Patient is postmenopausal. Family history of breast cancer in sister at age 50 or over, colorectal cancer in brother at age 50 or over, and breast cancer in 2 nieces under age 50. Digital Woman Screen Mammo: May 19, 2017 - Exam #: [id number] Bilateral CC and MLO view(s) were taken. Technologist: Naya Farias, Technologist Prior study comparison: March 18, 2016, digital woman screen mammo performed at [facility] [employer] [facility]. March 17, 2015, digital woman screen mammo performed at [facility] [employer] [facility]. FINDINGS: There are scattered fibroglandular densities. There is a fairly symmetric fibroglandular pattern in both breasts. There has been no interval development of masses, areas of architectural distortion or clusters of microcalcifications typical of malignancy. ASSESSMENT: BI-RADS/ACR category 2 mammogram. Benign finding(s). Recommendation Routine screening mammogram of both breasts in 1 year (for women over age 40). This mammogram was interpreted with the aid of an FDA-approved computer-aided dectection system. Electronically Signed By: Jm Faulkner MD 05/19/17 0138
== END ==
LOC: M WHC 09:55
PROVIDERS: ATTEND Family Medicine
DX: Z01.419 Encounter for gynecological examination (general) (routine) without abnormal findings (principal); Z12.31 Encounter for screening mammogram for malignant neoplasm of breast; Z78.0 Asymptomatic menopausal state; Z80.3 Family history of malignant neoplasm of breast; Z80.0 Family history of malignant neoplasm of digestive organs
CPT/HCPCS: G0101; G0202

== ENCOUNTER → 2017-05-23 | Outpatient (CLI) | payer MEDICARE, BC, OTHER ==
[~2017-05-23] MED LIST changes: +LIQUID POLIBAR PLUS 105% w/v 1900ML BTL As Ordered ONE
--- NOTE | 2017-05-23 17:17 | REP ---
SINGLE CONTRAST BARIUM ENEMA: The procedure was performed by NIKITA Lopez under the direct supervision of Dr Faulkner. A rectal catheter was inserted by female radiology staff and the balloon was inflated. A single contrast barium enema was performed. Fluoroscopy spot films and abdominal radiographs were obtained in multiple projections. The rectosigmoid stump appears intact. There are no leaks seen. The flow terminates at the distal sigmoid. There are a few small diverticula noted. IMPRESSION: Unremarkable barium enema of rectosigmoid stump showing no leaks. Reviewed by NIKITA Sifuentes 05/24/2017 11:14 AEdited and Signed by Jm Faulkner MD 05/24/2017 12:28 P
== END ==
LOC: M RAD 09:31
PROVIDERS: ATTEND Surgery
DX: Z98.0 Intestinal bypass and anastomosis status (principal)

== ENCOUNTER → 2017-05-24 | Outpatient (CLI) | payer MEDICARE, BC, OTHER ==
[~2017-05-24] MED LIST changes: -LIQUID POLIBAR PLUS 105% w/v 1900ML BTL As Ordered ONE
--- NOTE | 2017-05-24 10:27 | REP ---
RENAL ULTRASOUND WITH DUPLEX DOPPLER RENAL ARTERY EVALUATION: Real-time sonographic evaluation of the kidneys performed. The kidneys are normal in size and echotexture, right kidney measuring 11.0 x 5.8 x 4.3 cm and left kidney 10.2 x 6.0 x 5.1 cm. There is no hydronephrosis bilaterally. A cyst is seen in the upper pole of the right kidney measuring 5.4 x 5.6 x 4.5 cm. No other renal mass is seen and there is no definite renal calculus identified. Urinary bladder is not well distended and not well evaluated. Real-time ultrasound evaluation and duplex Doppler interrogation of the renal vasculature is performed bilaterally. Peak systolic velocity of the abdominal aorta at the level of the renal arteries is 53.2 cm/s. Peak systolic velocity of the main right renal artery is 133.8 cm/s. Renal to aortic ratio is 2.5. Resistive indices are measured in the upper, middle, and lower thirds of the right kidney and range between 0.7 and 0.8. Acceleration times range between 0.03 and 0.05. Peak systolic velocity in the main left renal artery is 95.1 cm/s with renal to aortic ratio 1.8. Resistive indices left kidney range between 0.7 and 0.8. Acceleration times are in the range of 0.03. IMPRESSION: Right renal cyst. No compelling duplex Doppler sonographic evidence of significant renal artery stenosis bilaterally. Signed by Jm Faulkner MD 05/24/2017 05:08 P
== END ==
LOC: M RAD 08:30
PROVIDERS: ATTEND Physician Assistant Medical
DX: N17.9 Acute kidney failure, unspecified (principal)

== ENCOUNTER 2017-05-31 14:38 | Emergency (ER) | payer MEDICARE, BC, OTHER ==
[~2017-05-31] VITALS: Ht 152.4 cm; Wt 70.5 kg
[~2017-05-31 14:38] MED LIST changes: -ASPI81TAEC PO; -DIPH2.5T14 PO; -K-TA10TA2 PO; -LOMO2.5T PO; -MOME50SP; -VITMTA PO
[2017-05-31] MEDS ORDERED: ACETAMINOPHEN TAB 650MG DOSE (2X325MG) PO ONE (16:00)
--- NOTE | 2017-05-31 16:26 | REP ---
RIGHT SHOULDER, THREE VIEWS: HISTORY: Pain. There is no acute fracture or dislocation. There is narrowing of the acromioclavicular joint space with associated osteophyte formation. IMPRESSION:There is no acute fracture or dislocation. Signed by Wes Thompson MD 05/31/2017 04:31 P
--- NOTE | 2017-05-31 16:27 | REP ---
LEFT ANKLE, FOUR VIEWS: HISTORY: Pain. There is no acute fracture or dislocation. The joint space is normal in appearance. IMPRESSION:There is no acute fracture or dislocation. Signed by Wes Thompson MD 05/31/2017 04:31 P
[2017-05-31 16:33] VITALS: BP 149/79
[2017-07-13] MEDS ORDERED: DIPH2.5T14 PO (10:45)
== END 2017-05-31 16:38 | disposition home or self-care (01) ==
LOC: M ED 14:38
DX: S40.011A Contusion of right shoulder, initial encounter (principal); S93.402A Sprain of unspecified ligament of left ankle, initial encounter; W01.198A Fall on same level from slipping, tripping and stumbling with subsequent striking against other object, initial encounter; Y92.481 Parking lot as the place of occurrence of the external cause; Y93.01 Activity, walking, marching and hiking; Y99.8 Other external cause status; F03.90 Unspecified dementia, unspecified severity, without behavioral disturbance, psychotic disturbance, mood disturbance, and anxiety; K21.9 Gastro-esophageal reflux disease without esophagitis; E78.00 Pure hypercholesterolemia, unspecified; J44.9 Chronic obstructive pulmonary disease, unspecified; J45.909 Unspecified asthma, uncomplicated; N18.9 Chronic kidney disease, unspecified; F41.9 Anxiety disorder, unspecified; Z79.899 Other long term (current) drug therapy; Z88.8 Allergy status to other drugs, medicaments and biological substances; Z86.73 Personal history of transient ischemic attack (TIA), and cerebral infarction without residual deficits

== ENCOUNTER → 2017-07-15 | Outpatient (REF) | payer MEDICARE, OTHER ==
[~2017-07-15] MED LIST changes: +ASPI81TAEC PO; +DIPH2.5T14 PO; +K-TA10TA2 PO; +LOMO2.5T PO; +MOME50SP; +VITMTA PO
== END ==
LOC: M SFHCPLAZ 11:57
PROVIDERS: ATTEND Family Medicine
DX: L82.0 Inflamed seborrheic keratosis (principal)

== ENCOUNTER → 2017-07-15 | Outpatient (CLI) | payer MEDICARE, BC, OTHER ==
--- NOTE | 2017-07-15 17:39 | ECGEPIP ---
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
== END ==
LOC: M EKG 10:14
PROVIDERS: ATTEND Anesthesiology
DX: J44.9 Chronic obstructive pulmonary disease, unspecified (principal); I51.7 Cardiomegaly
CPT/HCPCS: 11100; 93005; G0463

== ENCOUNTER 2017-07-22 07:10 | Inpatient (IN) | payer MEDICARE, BC, OTHER ==
[~2017-07-22] VITALS: Ht 152.4 cm; Wt 74.6 kg
[~2017-07-22 07:10] MED LIST changes: -ASPI81TAEC PO; -K-TA10TA2 PO; -LOMO2.5T PO; -MOME50SP; -VITMTA PO
[2017-07-22] MEDS ORDERED: ALVIMOPAN 12 MG CAPSULE (ENTEREG) PO ONE (07:30)
[2017-07-22] MEDS ORDERED: LR 1,000 ML IV ONE (07:30)
[2017-07-22] MEDS ORDERED: ERTAPENEM SODIUM 1 GM in NS MINI-BAG PLUS 50 ML IV ONE (07:30)
[2017-07-22] MEDS ORDERED: MIDAZOLAM INJ 2 MG/2 ML VIAL (J2250) As Ordered ONE (09:03)
[2017-07-22] MEDS ORDERED: fentaNYL 100 MCG/2 ML INJECTION (J3010) As Ordered ONE (09:03)
[2017-07-22] MEDS ORDERED: LIDOCAINE 2% INJ 100 MG/5 ML SDV (FOR ANES.) As Ordered ONE (09:59)
[2017-07-22] MEDS ORDERED: PROPOFOL 200 MG/20 ML VIAL As Ordered ONE (09:59)
[2017-07-22] MEDS ORDERED: ONDANSETRON 4MG/2ML VIAL (J2405) As Ordered ONE (10:00)
[2017-07-22] MEDS ORDERED: ePHEDrine SULFATE 25 MG/5 ML(5MG/ML) SYRINGE As Ordered ONE (10:00)
[2017-07-22] MEDS ORDERED: dexameTHASONE 4 MG/ML 1ML VIAL (J1100) As Ordered ONE (10:00)
[2017-07-22] MEDS ORDERED: ROCURONIUM BROMIDE 50 MG/5 ML VIAL/SYRINGE As Ordered ONE (10:00)
[2017-07-22] MEDS ORDERED: HYDROmorphone HCL 2 MG/ML 1ML VIAL (J1170) As Ordered ONE (10:10)
[2017-07-22] MEDS ORDERED: BUPIVACAINE LIPOSOME/PF 1.3% 20 ML VIAL (13.3MG/ML)(EXPAREL) As Ordered ONE (11:20)
[2017-07-22] MEDS ORDERED: NEOSTIGMINE 10 MG/10 ML VIAL (J2710) As Ordered ONE (11:27)
[2017-07-22] MEDS ORDERED: GLYCOPYRROLATE INJ 0.2 MG/ML 2 ML VIAL As Ordered ONE ×2 (11:27→11:28)
--- NOTE | 2017-07-22 11:29 | ROOPDOC ---
[facility] Report Of Operation Report of Operation DATE OF PROCEDURE: 07/22/17 PREPROCEDURE DIAGNOSES: Ileostomy status, history of perforated diverticulitis. POSTPROCEDURE DIAGNOSES: same. PROCEDURE: Reversal of Ileostomy. SURGEON: Devin Fraser MD USED CAR MANAGER: ANESTHESIA: general. ESTIMATED BLOOD LOSS: Approximately 50 mL. COMPLICATIONS: none. REMARKS: none. PROCEDURE NOTE: Patient is here today to reverse her diverting ileostomy. She had this placed after reversal of her end colostomy had leak in the anastomosis recognized during the procedure. DESCRIPTION OF PROCEDURE: Patient received 1gm Invanz preoperatively and a dose of Entereg. She was brought to the operating room, laid supine on the table, SCDs placed for DVT prophylaxis. General endotracheal anesthesia started without complications. I then removed her ileostomy appliance and sutured closed her diverting ileostomy with 3-0 silk. Her abdomen was then prepped with Betadine and draped in the usual sterile fashion, Timeout was performed using both preinduction and pre- incision safety checklist to verify correct patient, procedure site and additional clinical information prior to beginning the procedure A circumferential skin incision was created a centimeter or so beyond the ileostomy. This was slowly taken down through the superficial subcutaneous tissue. The ileostomy was then from the surrounding subcutaneous fat tissue down to the anterior fascia. Starting laterally a scored the anterior fascia and opened this up to enter into the abdomen a finger sweep was performed to free up the ileostomy from surrounding bowels and intra-abdominal adhesions. There were a few loops of small bowel that we lysed and freed up from the mesentery of the ileostomy. We then circumferentially dissected and freed the ileostomy from the fascial adhesions and attachments. This was pulled out of the abdomen to gain sufficient length. There were still some intra- abdominal adhesions preventing us early from doing this and by pulling on the fascial opening medially I lysed in the intra-abdominal adhesions freeing up more of the bowels both proximally and distally to gain enough length for the anastomosis. After doing so I chose an area of the 2 ends of the bowel that appears healthy with minimal scarring. Enterostomy was created and both ends and a 50 mm SHAHZAD stapler with a blue load was fired [id number] to create the anastomosis. The mesentery was divided in between hemostats and another 55 mm load of the SHAHZAD stapler was fired to close the enterostomy and divide the distal ileostomy bowel from our anastomosis. This was then passed off as a specimen. The bowel was placed back into the abdomen we visualized the underside of the fascial opening to make sure there were no further adhesions nearby or bowels stuck on the underside of the fascia. After doing so used a closing tray and changed gowns and gloves. The fascial opening from the ileostomy was then closed with 1 Vicryl in a running fashion. The subcutaneous space was irrigated and cleaned off. 3-0 Vicryl was used to close the cavity created by the ileostomy the skin was then closed with 3-0 nylon in interrupted and mattress fashion. Gauze dressings in place to cover the incision. Patient's arm is awakened and extubated and brought to recovery room stable DESIREE FRASER MD Jul 22, 2017 09:47
[2017-07-22] MEDS ORDERED: MOM 30ML SUSPENSION UDC PO PRN (11:30)
[2017-07-22] MEDS ORDERED: ALBUTEROL 90 MCG/ACT 8GM HFA INHALER INH PRN (11:30)
[2017-07-22] MEDS ORDERED: ACETAMINOPHEN TAB 650MG DOSE (2X325MG) PO PRN (11:30)
[2017-07-22] MEDS ORDERED: MORPHINE 4 MG/ML 1ML SYRINGE IV PRN (11:30)
[2017-07-22] MEDS ORDERED: HYDROmorphone HCL 1 MG/ML SYRINGE (J1170) As Ordered ONE (11:47)
[2017-07-22] MEDS ORDERED: PERCOCET 5MG/325MG TAB As Ordered ONE (11:48)
[2017-07-22] MEDS: HYDROmorphone HCL 1 MG/ML SYRINGE (J1170) IV PRN ×3 (11:53→12:10)
[2017-07-22] MEDS ORDERED: METOCLOPRAMIDE INJ 10MG/2ML VIAL (J2765) IV PRN (12:00)
[2017-07-22] MEDS ORDERED: ONDANSETRON 4MG/2ML VIAL (J2405) IV PRN (12:00)
[2017-07-22] MEDS ORDERED: PERCOCET 5MG/325MG TAB PO PRN (12:00)
[2017-07-22] MEDS ORDERED: LR 1,000 ML IV SCH (12:00)
[2017-07-22] MEDS ORDERED: fentaNYL 100 MCG/2 ML INJECTION (J3010) IV PRN (12:00)
[2017-07-22 13:15] VITALS: BP 146/70
[2017-07-22 13:45] VITALS: BP 146/66
[2017-07-22] MEDS: PARoxetine 10MG TABLET PO SCH (13:58)
[2017-07-22] MEDS: VITAMIN D 1,000 INTERNATIONAL UNITS TABLET PO SCH (13:58)
[2017-07-22] MEDS: SENOKOT S TAB PO SCH ×2 (13:58→20:58)
[2017-07-22] MEDS: MONTELUKAST 10 MG TAB PO SCH (13:58)
[2017-07-22] MEDS: ENOXAPARIN 40 MG/0.4 ML SYRINGE (J1650) SC SCH (13:59)
[2017-07-22 14:15] VITALS: BP 127/57
[2017-07-22 15:15] VITALS: BP 117/83
[2017-07-22 16:15] VITALS: BP 126/62
[2017-07-22] MEDS: ATORVASTATIN 10 MG TAB PO SCH (20:58)
[2017-07-22] MEDS: ALVIMOPAN 12 MG CAPSULE (ENTEREG) PO SCH (20:58)
[2017-07-22] MEDS: ASPIRIN 81 MG ENTERIC TAB PO SCH (20:58)
[2017-07-22 22:00] VITALS: BP 115/56
[2017-07-23 02:00] VITALS: BP 120/56
[2017-07-23] MEDS: NORCO, ANEXSIA 5/325MG TABLET (HYDROcodone/ACETAMINOPHEN) PO PRN ×4 (03:22→18:39)
[2017-07-23 06:00] VITALS: BP 120/60
[2017-07-23 06:09] LABS: BASO % 0.2 % (0.0-1.0); EOS % 0.1 % (0.0-3.0); IMMATURE GRANULOCYTE % 0.4 % (0-0); LYMPH # 1.7 10^3/uL (1.5-4.5); LYMPH % 18.1 % (24.0-44.0); MEAN CORPUSCULAR HEMOGLOBIN 29.5 pg (27.0-33.0); MEAN CORPUSCULAR HGB CONC 33.1 g/dl (32.0-36.5); MONO # 0.9 10^3/uL (0.0-0.8); MONO % 9.2 % (0.0-5.0); NEUTROPHILS # 6.6 10^3/uL (1.8-7.7); PLATELET COUNT, AUTOMATED 221 10^3/uL (150-450); RED CELL DISTRIBUTION WIDTH 12.9 % (11.5-14.5); WHITE BLOOD COUNT 9.2 10^3/uL (4.0-10.0)
[2017-07-23 06:31] LABS: ANION GAP 11 MEQ/L (8-16); BLOOD UREA NITROGEN 18 MG/DL (7-18); CALCIUM LEVEL 8.8 MG/DL (8.8-10.2); CARBON DIOXIDE LEVEL 22 MEQ/L (21-32); CHLORIDE LEVEL 107 MEQ/L (98-107); CREATININE FOR GFR 0.83 MG/DL (0.55-1.02); GLOMERULAR FILTRATION RATE > 60.0 (>39); GLUCOSE, FASTING 103 MG/DL (83-110); POTASSIUM SERUM 3.8 MEQ/L (3.5-5.1); SODIUM LEVEL 140 MEQ/L (136-145)
[2017-07-23] MEDS: PARoxetine 10MG TABLET PO SCH (08:57)
[2017-07-23] MEDS: VITAMIN D 1,000 INTERNATIONAL UNITS TABLET PO SCH (08:57)
[2017-07-23] MEDS: ALVIMOPAN 12 MG CAPSULE (ENTEREG) PO SCH ×2 (08:57→20:29)
[2017-07-23] MEDS: MONTELUKAST 10 MG TAB PO SCH (08:57)
[2017-07-23] MEDS: SENOKOT S TAB PO SCH ×2 (08:57→20:29)
[2017-07-23] MEDS: ENOXAPARIN 40 MG/0.4 ML SYRINGE (J1650) SC SCH (08:58)
[2017-07-23 10:00] VITALS: BP 142/63
--- NOTE | 2017-07-23 13:26 | IPN ---
DATE: 07/23/2017 The patient is now 1 day postoperative from ileostomy closure. She is reporting some crampy abdominal pain today. She has been tolerating clear liquids well and has been advanced to full liquids. She reports no appetite, but has been drinking. Vital Signs: She has been afebrile since surgery. Her pulse is in the 50s and 60s. Blood pressure is fine with a good room air oxygen saturation. Her intake and output from yesterday shows 3900 in with 1050 out. PHYSICAL EXAMINATION: She is sitting up in a chair looking fairly comfortable. She is alert and oriented. Sclerae are anicteric. Heart exam shows a regular rhythm. The lungs are clear. The abdomen shows some bowel sounds present. She has a large bandage across the mid abdomen with a small area of blood staining in the left lateral aspect. The abdomen is nondistended. LABORATORY DATA: Her white count today is 9 with a hemoglobin of 10, hematocrit of 30 and platelet count of 221,000. Chemistry profile is showing normal electrolytes, BUN, creatinine and glucose. IMPRESSION: Patient is doing well postoperative day #1 from her ileostomy closure. PLAN: The patient will continue on her full liquids and advance her diet as tolerated. She was counseled that she is expected to have some crampy abdominal discomfort as her bowel function returns. She did report passage of a small amount of gas earlier today. She was encouraged to be up out of bed. I would hope that she would be ready for discharge in the next three days or so. BIRD
[2017-07-23 14:00] VITALS: BP 139/65
[2017-07-23] MEDS: ONDANSETRON 4MG/2ML VIAL (J2405) IV PRN (14:05)
[2017-07-23 18:00] VITALS: BP 147/67
[2017-07-23] MEDS: ATORVASTATIN 10 MG TAB PO SCH (20:29)
[2017-07-23] MEDS: MAALOX 30 ML SUSP *UDC PO PRN (20:29)
[2017-07-23] MEDS: ASPIRIN 81 MG ENTERIC TAB PO SCH (20:29)
[2017-07-23 22:00] VITALS: BP 139/55
[2017-07-24] MEDS: ONDANSETRON 4MG/2ML VIAL (J2405) IV PRN (00:18)
[2017-07-24] MEDS: MAALOX 30 ML SUSP *UDC PO PRN (02:37)
[2017-07-24] MEDS: NORCO, ANEXSIA 5/325MG TABLET (HYDROcodone/ACETAMINOPHEN) PO PRN ×2 (02:58→09:35)
[2017-07-24 06:00] VITALS: BP 151/67
[2017-07-24] MEDS: SENOKOT S TAB PO SCH ×2 (09:35→21:24)
[2017-07-24] MEDS: MONTELUKAST 10 MG TAB PO SCH (09:35)
[2017-07-24] MEDS: VITAMIN D 1,000 INTERNATIONAL UNITS TABLET PO SCH (09:35)
[2017-07-24] MEDS: ALVIMOPAN 12 MG CAPSULE (ENTEREG) PO SCH ×2 (09:36→21:33)
[2017-07-24] MEDS: ENOXAPARIN 40 MG/0.4 ML SYRINGE (J1650) SC SCH (09:36)
[2017-07-24] MEDS: PARoxetine 10MG TABLET PO SCH (09:36)
[2017-07-24] MEDS: LR 1,000 ML IV SCH (11:12)
--- NOTE | 2017-07-24 11:32 | REP ---
KUB: Single view. History: Evaluate for ileus. Comparison film: November 25, 2016. Findings: There are mildly dilated air and fluid filled loops of mid and distal colon as well as small bowel loops in the right mid abdomen. This is compatible with ileus. There is a small quantity of previously administered barium in the rectum which is otherwise empty. There are clips scattered in the left mid abdomen and pelvis. Impression: Air and fluid dilated small and large bowel loops may reflect ileus. Signed by Germán Kumar MD 07/24/2017 01:22 P
[2017-07-24 14:00] VITALS: BP 140/75
--- NOTE | 2017-07-24 15:07 | IPN ---
DATE: 07/24/2017 HISTORY: The patient is now postoperative day #2 from takedown of her ileostomy. She has been having some nausea and emesis overnight with three recorded episodes of emesis. She has had some bowel function as well with some loose, greenish liquid stool. She is not having a lot of pain except across her mid abdomen which she thinks is related to her vomiting. VITAL SIGNS: The patient has been afebrile for the past 24 hours, pulse 66-87, respiratory rate 16-20, and a systolic blood pressure this morning of 140/75. Intake and output yesterday 720 in with 1400 out. This morning she has 350 mL of urine recorded and 225 mL of emesis with several loose bowel movements noted. PHYSICAL EXAMINATION: Reveals a pleasant woman who appears somewhat uncomfortable. She is alert and oriented. Sclerae are anicteric. Heart and lung exams are unremarkable. The abdomen is mildly full. She has a dressing across the mid abdomen. She does have bowel sounds present on both sides of the abdomen. The abdomen is soft and without undue tenderness. LABORATORY STUDIES: She has no new blood work this morning. A KUB was done which shows some air-filled loops of some small bowel but also some large bowel, though these do not appear particularly distended. IMPRESSION: The patient is doing well now 2 days out from takedown of her ileostomy. She has had some nausea and a little bit of vomiting but has continued to try taking some liquids. She is having increasing amounts of stool per rectum but not much gas yet. PLAN: The patient was advised to cut back to a liquid diet. As her stomach settles, if she feels like eating regular food she can but I advised her to go cautiously. I will restart some lactated Ringer's at 65 mL an hour until it is clear that she can tolerate some oral intake better. Her other medications will be continued. MTDD
[2017-07-24] MEDS: CALCIUM CARBONATE 500 MG CHEW U/D PO PRN ×2 (16:39→21:33)
[2017-07-24] MEDS: ASPIRIN 81 MG ENTERIC TAB PO SCH (21:34)
[2017-07-24] MEDS: ATORVASTATIN 10 MG TAB PO SCH (21:34)
[2017-07-24 22:00] VITALS: BP 141/68
[2017-07-25] MEDS: CALCIUM CARBONATE 500 MG CHEW U/D PO PRN ×3 (01:36→20:51)
[2017-07-25] MEDS: LR 1,000 ML IV SCH ×2 (01:36→17:00)
[2017-07-25] MEDS: NORCO, ANEXSIA 5/325MG TABLET (HYDROcodone/ACETAMINOPHEN) PO PRN ×2 (01:51→20:52)
[2017-07-25 06:34] LABS: MEAN CORPUSCULAR HEMOGLOBIN 29.7 pg (27.0-33.0); MEAN CORPUSCULAR HGB CONC 33.9 g/dl (32.0-36.5); MEAN CORPUSCULAR VOLUME 87.7 fl (80.0-96.0); PLATELET COUNT, AUTOMATED 254 10^3/uL (150-450); RED CELL DISTRIBUTION WIDTH 13.2 % (11.5-14.5); WHITE BLOOD COUNT 8.8 10^3/uL (4.0-10.0)
[2017-07-25 06:36] LABS: ADD MANUAL DIFFER YES; DIFF SLIDE NUMBER 96; LEFT SHIFT POS FLAG; POSITIVE MORPH POS FLAG; WBC SCAT POS FLAG
[2017-07-25 06:48] VITALS: BP 138/71
[2017-07-25 06:53] LABS: ANION GAP 6 MEQ/L (8-16); BLOOD UREA NITROGEN 22 MG/DL (7-18); CARBON DIOXIDE LEVEL 28 MEQ/L (21-32); CHLORIDE LEVEL 102 MEQ/L (98-107); CREATININE FOR GFR 0.67 MG/DL (0.55-1.02); GLOMERULAR FILTRATION RATE > 60.0 (>39); GLUCOSE, FASTING 107 MG/DL (83-110); POTASSIUM SERUM 3.5 MEQ/L (3.5-5.1); SODIUM LEVEL 136 MEQ/L (136-145)
[2017-07-25 07:17] LABS: ANISOCYTOSIS 1+; BANDS 8 % (< 11)
[2017-07-25] MEDS: ALVIMOPAN 12 MG CAPSULE (ENTEREG) PO SCH ×2 (08:50→20:49)
[2017-07-25] MEDS: SENOKOT S TAB PO SCH ×2 (08:50→20:49)
[2017-07-25] MEDS: ENOXAPARIN 40 MG/0.4 ML SYRINGE (J1650) SC SCH (08:50)
[2017-07-25] MEDS: MONTELUKAST 10 MG TAB PO SCH (08:50)
[2017-07-25] MEDS: VITAMIN D 1,000 INTERNATIONAL UNITS TABLET PO SCH (08:50)
[2017-07-25] MEDS: PARoxetine 10MG TABLET PO SCH (08:50)
--- NOTE | 2017-07-25 10:23 | IPN ---
DATE OF SERVICE: 07/25/2017 The patient is now 3 days postop from closure of her ileostomy. She had some nausea yesterday which she reports has improved but she indicates that she has no appetite and feels as if nothing tastes good. She has been having some loose small bowel movements which seem to contain some blood but not fresh blood. She has been voiding but this is not well recorded. Vital signs: The patient has been afebrile for the past 24 hours with pulse in the 80s. Normal respiratory rate and good blood pressure. Intake and output yesterday 780 recorded in and 1025 out with 225 of that representing emesis. PHYSICAL EXAMINATION: The patient is alert and oriented. Heart exam shows an irregular rhythm of about 80. Lungs are clear. The abdomen is mildly protuberant. She has a dry dressing in the left midabdomen. She has bowel sounds present. The abdomen is softly distended and without undue tenderness. Laboratory studies show white count of 8.8 with hemoglobin 12, hematocrit 36 and her differential shows 52% neutrophils, 8 bands and 28 lymphocytes. Chemistry profile shows normal electrolytes with BUN 22, creatinine 0.67 and a glucose of 107. IMPRESSION/PLAN: The patient has had resolution of her nausea but still does not have an appetite. She has been taking some clear liquids. I will leave her on her IV of lactated ringers at 65 mL an hour. I will advance her diet to regular so that she can pick and choose to see if she can find something that tastes good. I will allow her to shower. Otherwise we will continue as we currently are. BIRD
[2017-07-25] MEDS: ONDANSETRON 4MG/2ML VIAL (J2405) IV PRN (11:56)
[2017-07-25 14:00] VITALS: BP 127/60
[2017-07-25] MEDS: ATORVASTATIN 10 MG TAB PO SCH (20:49)
[2017-07-25] MEDS: ASPIRIN 81 MG ENTERIC TAB PO SCH (20:50)
[2017-07-25 22:00] VITALS: BP 140/70
[2017-07-26 06:24] VITALS: BP 142/75
[2017-07-26 06:25] LABS: MEAN CORPUSCULAR HEMOGLOBIN 29.2 pg (27.0-33.0); MEAN CORPUSCULAR HGB CONC 33.6 g/dl (32.0-36.5); MEAN CORPUSCULAR VOLUME 86.8 fl (80.0-96.0); PLATELET COUNT, AUTOMATED 264 10^3/uL (150-450); WHITE BLOOD COUNT 9.4 10^3/uL (4.0-10.0)
[2017-07-26 06:32] LABS: ADD MANUAL DIFFER YES; DIFF SLIDE NUMBER 56; LEFT SHIFT POS FLAG; POSITIVE MORPH POS FLAG
[2017-07-26] MEDS: CALCIUM CARBONATE 500 MG CHEW U/D PO PRN ×3 (07:02→20:08)
[2017-07-26 07:08] LABS: ANION GAP 7 MEQ/L (8-16); BLOOD UREA NITROGEN 20 MG/DL (7-18); CARBON DIOXIDE LEVEL 29 MEQ/L (21-32); CHLORIDE LEVEL 102 MEQ/L (98-107); CREATININE FOR GFR 0.65 MG/DL (0.55-1.02); GLOMERULAR FILTRATION RATE > 60.0 (>39); GLUCOSE, FASTING 103 MG/DL (83-110); POTASSIUM SERUM 3.3 MEQ/L (3.5-5.1); SODIUM LEVEL 138 MEQ/L (136-145)
[2017-07-26 07:22] LABS: BANDS 1 % (< 11); EOSINOPHILS 2 % (0-5)
[2017-07-26] MEDS: MONTELUKAST 10 MG TAB PO SCH (08:21)
[2017-07-26] MEDS: SENOKOT S TAB PO SCH ×2 (08:21→20:08)
[2017-07-26] MEDS: ENOXAPARIN 40 MG/0.4 ML SYRINGE (J1650) SC SCH (08:21)
[2017-07-26] MEDS: PARoxetine 10MG TABLET PO SCH (08:21)
[2017-07-26] MEDS: VITAMIN D 1,000 INTERNATIONAL UNITS TABLET PO SCH (08:21)
[2017-07-26 08:50] VITALS: BP 137/79
[2017-07-26 14:00] VITALS: BP 138/69
[2017-07-26] MEDS: PANTOPRAZOLE 40MG INJ (PROTONIX) (C9113) IV SCH (14:02)
[2017-07-26] MEDS: LR 1,000 ML IV SCH ×2 (14:02→22:30)
--- NOTE | 2017-07-26 18:13 | IPN ---
DATE: 07/26/2017 HISTORY: The patient is now four days postoperative from closure of her ileostomy which was created in response to an anastomotic leak following bowel resection. Her chief problem has been some persistent nausea and she reports that she still has no appetite or taste for food and has been unable to take anything. She reports that she has persistent sensation of heartburn. She has had a few small bowel movements that are loose and brown without any evidence of blood at this time. VITAL SIGNS: The patient has been afebrile for the past 24 hours. Her pulse has ranged from 78-90 with an acceptable respiratory rate and normal blood pressure. Her room air oxygen saturations seemed to have dropped a little bit into the low 90s where they had been in the high 90s on admission. Intake and output shows 1920 in yesterday with 1450 out. She had 1100 in yesterday but has declined anything to eat today. PHYSICAL EXAMINATION: Shows a pleasant woman lying quietly on the hospital bed. She is alert and oriented. Heart examination shows a regular rhythm. The lungs are generally clear. The abdomen shows a small dry dressing in the left midabdomen. Her abdomen is somewhat distended today. She has bowel sounds present. There is no tympany to percussion. The abdomen is soft and there are no peritoneal signs. LABORATORY STUDIES: Show a white count of 9.4 with a hemoglobin of 11, hematocrit of 33, and a platelet count of 264,000. Differential count is normal with 67% neutrophils, 1 band, 21% lymphocytes, and 6 monocytes. IMPRESSION: Stable four days postoperative from ileostomy closure but with poor to nonexistent oral intake and some abdominal distension. PLAN: The patient will be put back on some limited IV fluids to ensure against dehydration. I have recommended that she take clear liquids or even solid food as able. I will start her on Protonix 40 mg IV daily to try to address her heartburn sensation. She was encouraged to be up ambulatory. Hopefully, we will see some improvement in her appetite and her bowel function over the next day or two. [facility]
[2017-07-26] MEDS: ASPIRIN 81 MG ENTERIC TAB PO SCH (20:07)
[2017-07-26] MEDS: ATORVASTATIN 10 MG TAB PO SCH (20:07)
[2017-07-26 22:00] VITALS: BP 131/58
[2017-07-27 06:00] VITALS: BP 135/69
[2017-07-27 07:27] LABS: MEAN CORPUSCULAR HEMOGLOBIN 28.4 pg (27.0-33.0); MEAN CORPUSCULAR HGB CONC 32.7 g/dl (32.0-36.5); MEAN CORPUSCULAR VOLUME 86.8 fl (80.0-96.0); WHITE BLOOD COUNT 6.7 10^3/uL (4.0-10.0)
[2017-07-27 07:56] LABS: ANION GAP 7 MEQ/L (8-16); BLOOD UREA NITROGEN 21 MG/DL (7-18); CALCIUM LEVEL 8.3 MG/DL (8.8-10.2); CARBON DIOXIDE LEVEL 29 MEQ/L (21-32); CHLORIDE LEVEL 103 MEQ/L (98-107); CREATININE FOR GFR 0.62 MG/DL (0.55-1.02); GLOMERULAR FILTRATION RATE > 60.0 (>39); GLUCOSE, FASTING 89 MG/DL (83-110); SODIUM LEVEL 139 MEQ/L (136-145)
[2017-07-27] MEDS: SENOKOT S TAB PO SCH ×5 (09:00→21:00)
[2017-07-27] MEDS: PANTOPRAZOLE 40MG INJ (PROTONIX) (C9113) IV SCH (09:29)
[2017-07-27] MEDS: ENOXAPARIN 40 MG/0.4 ML SYRINGE (J1650) SC SCH (09:29)
[2017-07-27] MEDS: PARoxetine 10MG TABLET PO SCH (09:30)
[2017-07-27] MEDS: LR 1,000 ML IV SCH ×2 (09:30→18:30)
[2017-07-27] MEDS: VITAMIN D 1,000 INTERNATIONAL UNITS TABLET PO SCH (09:30)
[2017-07-27] MEDS: MONTELUKAST 10 MG TAB PO SCH (09:30)
[2017-07-27 14:00] VITALS: BP 120/60
--- NOTE | 2017-07-27 20:08 | IPN ---
DATE: 07/27/2017 Patient is now 5 days postop from her ileostomy closure. Patient reports that she is feeling better today and her appetite has improved. She has taken some solid food. She is voiding well and has had at least one bowel movement today with no blood. VITAL SIGNS: The patient is afebrile with stable vital signs. INTAKE AND OUTPUT: Yesterday she had 1530 in with 600 out recorded and today she has had 1000 in and 1000 out. Physical exam reveals that the patient is alert and oriented. Heart exam shows a regular rhythm. The abdomen is softly distended, but is soft and without significant tenderness. Her incision is healing nicely and is closed well with some nylon sutures. LABORATORY STUDIES: She had a CBC showing a white count of 6.7, hemoglobin 10, hematocrit 30 and platelet count of 262,000. Chemistry profile shows that her potassium today was low at 3.0 with a BUN of 21, creatinine 0.6. Her pathology report revealed a portion of ileostomy stoma with some mucosal ulceration and acute inflammation. IMPRESSION: Patient is making good progress now with an improved appetite and oral intake. She has been ambulatory in the partida and is having bowel movements with little discomfort. PLAN: I will saline lock her IV and if she is feeling well in the morning and still taking a diet well, I believe she will be ready for discharge. BIRD
[2017-07-27] MEDS: CALCIUM CARBONATE 500 MG CHEW U/D PO PRN (20:33)
[2017-07-27] MEDS: ASPIRIN 81 MG ENTERIC TAB PO SCH (20:33)
[2017-07-27] MEDS: ATORVASTATIN 10 MG TAB PO SCH (20:33)
[2017-07-27] MEDS: POTASSIUM CHLORIDE 10 MEQ SR TABLET PO SCH (20:36)
[2017-07-27 22:00] VITALS: BP 140/66
[2017-07-28] MEDS: POTASSIUM CHLORIDE 10 MEQ SR TABLET PO SCH
[2017-07-28 06:00] VITALS: BP 139/69
[2017-07-28 06:26] LABS: ANION GAP 5 MEQ/L (8-16); BLOOD UREA NITROGEN 18 MG/DL (7-18); CALCIUM LEVEL 7.6 MG/DL (8.8-10.2); CARBON DIOXIDE LEVEL 30 MEQ/L (21-32); CHLORIDE LEVEL 104 MEQ/L (98-107); CREATININE FOR GFR 0.67 MG/DL (0.55-1.02); GLOMERULAR FILTRATION RATE > 60.0 (>39); GLUCOSE, FASTING 87 MG/DL (83-110); POTASSIUM SERUM 3.3 MEQ/L (3.5-5.1); SODIUM LEVEL 139 MEQ/L (136-145)
[2017-07-28] MEDS ORDERED: POTASSIUM CHLORIDE 10 MEQ SR TABLET PO ONE (08:00)
[2017-07-28] MEDS: VITAMIN D 1,000 INTERNATIONAL UNITS TABLET PO SCH (08:31)
[2017-07-28] MEDS: MONTELUKAST 10 MG TAB PO SCH (08:31)
[2017-07-28] MEDS: PARoxetine 10MG TABLET PO SCH (08:32)
[2017-07-28] MEDS: ENOXAPARIN 40 MG/0.4 ML SYRINGE (J1650) SC SCH (08:33)
[2017-07-28] MEDS: PANTOPRAZOLE 40MG INJ (PROTONIX) (C9113) IV SCH (08:33)
[2017-07-28 14:00] VITALS: BP 149/67
--- NOTE | 2017-07-28 14:45 | IPN ---
DATE: 07/28/2017 HISTORY: The patient is now day six postop from her ileostomy closure. She reports that she is doing well and is ready to go home. Vital signs reveal her to be afebrile with normal vital signs. Intake and output shows 1420 in yesterday and 1425 out. Physical exam reveals her to be alert and oriented. Heart and lung exams are unremarkable. The abdomen is flat. Her incision in the left midabdomen is closed with some nylon sutures. There is a minimal pink area along the edges of the wound but no sign of infection. The abdomen is otherwise soft and without undue tenderness. LABORATORY STUDY: She had a chemistry profile today to followup on a low potassium. Her potassium is up to 3.3 and her other electrolytes are normal. IMPRESSION: 1. Is doing well now 6 days postop from her ileostomy closure. PLAN: The patient will be released to go home. She is taking no pain medications at this time and reports that she is eating well and having bowel function. She was counseled to avoid any strenuous physical activity. She should follow up with Dr. Fraser next week in the office to have her sutures removed. She should call us for any problems in the interim and resume her preadmission medications. BIRD
--- NOTE | 2017-08-05 15:24 | DSES ---
DATE OF ADMISSION: 07/22/2017 DATE OF DISCHARGE: 07/28/2017 ADMISSION DIAGNOSIS: Elective ileostomy closure. HISTORY OF PRESENT ILLNESS: The patient is a 71-year-old woman who had undergone a sigmoid resection and end colostomy for perforated diverticulitis. She had undergone a previous closure of her colostomy but had a postoperative leak. She underwent repair of the leak and a diverting ileostomy. She is now being admitted to undergo an elective ileostomy closure. HOSPITAL COURSE: The patient was admitted on July 22. She was taken to the operating room where she underwent an open closure of her ileostomy. Postoperatively she did well. She was started on some clear liquids. She developed a transient ileus that delayed her oral intake for perhaps 2-3 days. Her diet was then further advanced. She subsequently made good progress and by July 28 was stable with stable vital signs. Her incision looked good and appeared to be healing well. She was tolerating a regular diet and was discharged home. FINAL DIAGNOSES: 1. Ileostomy for elective closure. 2. Chronic obstructive pulmonary disease. 3. Hypertension. 4. Glaucoma. 5. Hypercholesterolemia. PROCEDURE PERFORMED: Reversal of ileostomy or takedown of ileostomy. DISPOSITION: The patient was discharged home on July 28. She was advised to continue diet as tolerated. She was advised against any lifting greater than 25 pounds or other strenuous activity. She was to wash her wounds gently with soap and water daily and apply a dab of topical antibiotic ointment and a dry dressing. She was to resume her preadmission medications. She was not taking any prescription pain relievers at the time of her discharge. She was to followup in the office on August [address] Fraser, and call sooner for any problems.
== END 2017-07-28 16:10 | disposition home health service (06) | DRG 331 ==
LOC: M OR 07:10 → M MSPAV 13:21
PROVIDERS: ADMIT Surgery; ATTEND Surgery
PROC: 0DBB0ZZ Excision of Ileum, Open Approach (ICD-10-PCS; principal; 2017-07-22 09:15)
DX: Z43.2 Encounter for attention to ileostomy (principal); I10 Essential (primary) hypertension; J44.9 Chronic obstructive pulmonary disease, unspecified; E78.00 Pure hypercholesterolemia, unspecified; H40.9 Unspecified glaucoma; Z79.899 Other long term (current) drug therapy

== ENCOUNTER 2017-08-02 17:17 | Inpatient (IN) | payer MEDICARE, BC, OTHER ==
[~2017-08-02] VITALS: Ht 152.4 cm; Wt 71.1 kg
[2017-08-02] MEDS: MONTELUKAST 10 MG TAB PO SCH (21:00)
[2017-08-02] MEDS ORDERED: MORPHINE 2 MG/ML 1ML SYRINGE IV ONE (22:00)
[2017-08-02] MEDS ORDERED: READI-CAT 2 PO ONE ×2 (22:15)
[2017-08-02 22:31] LABS: BASO % 0.3 % (0.0-1.0); EOS # 0.1 10^3/uL (0.0-0.50); EOS % 1.4 % (0.0-3.0); IMMATURE GRANULOCYTE % 0.5 % (0-0); LYMPH # 2.1 10^3/uL (1.5-4.5); LYMPH % 20.1 % (24.0-44.0); MEAN CORPUSCULAR HEMOGLOBIN 29.3 pg (27.0-33.0); MEAN CORPUSCULAR HGB CONC 33.6 g/dl (32.0-36.5); MEAN CORPUSCULAR VOLUME 87.1 fl (80.0-96.0); MONO # 0.9 10^3/uL (0.0-0.8); MONO % 8.6 % (0.0-5.0); NEUTROPHILS % 69.1 % (36.0-66.0); PLATELET COUNT, AUTOMATED 347 10^3/uL (150-450); WHITE BLOOD COUNT 10.2 10^3/uL (4.0-10.0)
[2017-08-02] MEDS ORDERED: VITMTA PO (22:32)
[2017-08-02] MEDS ORDERED: LOMO2.5T PO (22:32)
[2017-08-02] MEDS ORDERED: MOME50SP (22:32)
[2017-08-02] MEDS ORDERED: ASPI81TAEC PO (22:32)
[2017-08-02 22:51] LABS: ANION GAP 8 MEQ/L (8-16); BLOOD UREA NITROGEN 18 MG/DL (7-18); CALCIUM LEVEL 8.4 MG/DL (8.8-10.2); CARBON DIOXIDE LEVEL 31 MEQ/L (21-32); CHLORIDE LEVEL 102 MEQ/L (98-107); CREATININE FOR GFR 0.64 MG/DL (0.55-1.02); GLOMERULAR FILTRATION RATE > 60.0 (>39); GLUCOSE, FASTING 100 MG/DL (83-110); SODIUM LEVEL 141 MEQ/L (136-145)
[2017-08-02 23:03] LABS: POTASSIUM SERUM 2.5 MEQ/L (3.5-5.1)
[2017-08-02] MEDS ORDERED: KCL 10MEQ IN 100ML SWI (KRUN) 10 MEQ in APPROPRIATE DILUENT 1 EA IV ONE ×2 (23:15)
[2017-08-02] MEDS ORDERED: NS 500 ML IV ONE (23:15)
[2017-08-02 23:58] LABS: CALCIUM OXALATE CRYSTALS SMALL
[2017-08-03] MEDS ORDERED: NS 1,000 ML IV SCH (00:49)
[2017-08-03] MEDS ORDERED: METOCLOPRAMIDE INJ 10MG/2ML VIAL (J2765) IV PRN (01:00)
[2017-08-03] MEDS ORDERED: FLUTICASONE PROP 0.05% NASAL SPRAY 16 GM (FLONASE) PRN (01:00)
[2017-08-03] MEDS ORDERED: IPRATROPIUM 0.5MG/ALBUTEROL 2.5MG INH SOL UD 3ML (DUONEB)(J7620) NEB PRN (01:00)
[2017-08-03] MEDS ORDERED: PROMETHAZINE INJ 25 MG/ML VIAL (J2550) IV PRN (01:00)
[2017-08-03] MEDS ORDERED: MORPHINE 4 MG/ML 1ML SYRINGE IV PRN (01:00)
[2017-08-03] MEDS ORDERED: ONDANSETRON 4MG/2ML VIAL (J2405) IV PRN (01:00)
--- NOTE | 2017-08-03 01:20 | REPUSA ---
CLINICAL HISTORY: Abdominal pain. TECHNIQUE: Multiple axial, sagittal and coronal CT images were obtained through the abdomen and pelvi s without administration of IV contrast material. Patient ingested oral contrast. COMMENTS: Comparison to prior exam on 11/21/2016. Surgical changes of the anterior abdominal wall. Associated to 9.2x4.7 cm seroma in the subcutaneous soft tissues of anterior abdominal wall. Moderate ileus. Unchanged right renal cyst. Absent gallbladder. Unchanged 1.1 cm well-defined hypodense lesion of the right hepatic lobe. Probably benign and chronic . The remaining liver is of uniform attenuation without mass or defect. There is no intra or extrahepat ic biliary ductal dilatation. The spleen is normal. The pancreas is of normal contour and attenuation characteristics. There is no evidence of adrenal mass. The kidneys are normal in size, shape and configuration. No renal or ureteral calculi are identified. There is no hydroureter or hydronephrosis. There is no evidence for appendicitis. There is no evidence of intrinsic or extrinsic bladder mass. There is no pelvic ascites or lymphadeno luis. Images of the lung bases show no evidence of pleural or parenchymal mass. Unchanged minimal pleural effusions. The bony structures are free of lytic or blastic lesions. Multilevel degenerative changes are seen in volving the thoracolumbar spine. Scattered calcifications are seen involving the aorta and major branches compatible with atherosclero sis. IMPRESSION: Surgical changes of anterior abdominal wall. Subcutaneous soft tissue anterior abdominal wall seroma. Ileus. Oral contrast is noted in the large bowels. Thank you for your kind referral of this patient.
[2017-08-03] MEDS ORDERED: CIPROFLOXACIN 400 MG in APPROPRIATE DILUENT 1 EA IV SCH (02:00)
[2017-08-03 02:37] VITALS: BP 146/82
[2017-08-03] MEDS ORDERED: metroNIDAZOLE 500 MG in APPROPRIATE DILUENT 1 EA IV SCH (03:00)
[2017-08-03] MEDS: IPRATROPIUM 0.5MG/ALBUTEROL 2.5MG INH SOL UD 3ML (DUONEB)(J7620) NEB SCH ×4 (03:16→20:00)
[2017-08-03] MEDS: MORPHINE 2 MG/ML 1ML SYRINGE IV PRN ×2 (04:02→06:44)
[2017-08-03 06:33] VITALS: BP 127/58
--- NOTE | 2017-08-03 07:48 | REP ---
Acute abdominal series series including PA chest and supine upright abdomen: Comparison is the CT of the abdomen pelvis earlier today. PA chest: I suspect there is a small right pleural effusion. Lung goldman otherwise clear. Cardiac size is normal. The moe, mediastinum, and bony thorax unremarkable. There is no free subdiaphragmatic air. Impression: Small right pleural effusion. No free subdiaphragmatic air. Abdomen, supine upright views: There are multiple dilated small bowel loops and multiple dilated large bowel loops. There are multiple air-fluid levels. This could represent ileus or bowel obstruction. There are surgical clips in the abdomen. Impression: Dilated bowel with multiple air-fluid levels, ileus versus obstruction. Signed by Jm Mazariegos MD 08/03/2017 07:40 A
--- NOTE | 2017-08-03 08:19 | REP ---
Supine and upright abdomen, 11:00 a.m.: Comparison is 08/02/2079, 09:32 p.m.. There are dilated large and small bowel loops with multiple air-fluid levels compatible with ileus or obstruction. There are no are surgical clips in the abdomen. There is no significant change from the comparison study. Signed by Jm Mazariegos MD 08/03/2017 08:09 A
--- NOTE | 2017-08-03 08:55 | HPEPDOC ---
General Surgery H&P Date of Admission Aug 03, 2017 at 00:49 History and Physical CHIEF COMPLAINT: ABDOMINAL PAIN AND DISCOMFORT HISTORY OF PRESENT ILLNESS: 71 year old female patient of mine who underwent reversal of her diverting ileostomy on 07/22 and discharged home last week and returned to the ER overnight with complaints of one day history of increasing pressure, and abdominal discomfort on her left lower abdomen. She reports that when she got home she was having about 4-6 loose stools every time she eats though by Tuesday her stools are becoming more formed and less frequent. By Tuesday she did not have any bowel movements and by Tuesday she was having a lot of discomfort from abdominal bloating and cramping. She reports some mild nausea with no vomiting. She reports a lot of heartburn type symptoms. She denies any fevers or chills. She denies any purulent drainage from her incision. ALLERGIES: Please see below. HOME MEDICATIONS: Please see below. PAST MEDICAL HISTORY: History of perforated diverticulitis COPD Hypertension Glaucoma Macular degeneration Hypercholesterolemia PAST SURGICAL HISTORY: Trigger finger repair and sinus surgery Fatty tumor removed from right shoulder Polyp removed from larynx Colonoscopy Sigmoid colon resection with colostomy Colostomy reversal with diverting ileostomy Reversal of diverting ileostomy PERSONAL/SOCIAL HISTORY: Denies smoking, alcohol use, or recreational drug use REVIEW OF SYSTEMS: GENERAL: Denies chills, fatigue, fever, weight gain and weight loss. HEENT: Denies blurred vision and double vision. Denies ear symptoms. Denies hoarseness. NECK: Denies any neck pain. CARDIOVASCULAR: Denies chest pain and palpitations. MUSCULOSKELETAL: Denies arthralgias, back pain and thrombophlebitis. SKIN: Denies rash. NEUROLOGIC: Denies headache, stroke and transient ischemic attack. PSYCHIATRIC: Denies anxiety and depression. ENDOCRINE: Denies thyroid disease. HEMATOLOGY/ONCOLOGY: Denies any bleeding or clotting disorder. HEART: Denies any chest pains, palpitations, paroxysmal dyspnea, orthopnea. PULMONARY: Denies chronic cough, dyspnea and wheezing. GASTROINTESTINAL: Reports abdominal pain/cramping, loose stools, bloating. GENITOURINARY: Denies dysuria, frequency, hematuria and nocturia. ENDOCRINE: Denies polydipsia, polyphagia, polyuria, heat or cold intolerance. INFECTIOUS: Denies any recent upper respiratory tract infection, UTI, need for use of antibiotics. NUTRITION: Reports fair appetite. PHYSICAL EXAMINATION: VITAL SIGNS: Please see below. GENERAL APPEARANCE: Patient seen at bedside, appears comfortable. Awake, alert, oriented. HEENT: Normocephalic, atraumatic. [place] palpebral conjunctivae. Anicteric sclerae. Lips moist. CHEST: No chest wall abnormalities. Normal respiratory motion/effort. NECK: Supple. No thyromegaly. No lymphadenopathies. LUNGS: Lung sounds are clear to auscultation bilaterally. No wheezing appreciated. HEART: No chest wall abnormalities. Heart rate and rhythm are regular with no murmurs. ABDOMEN: Abdomen is round ,obese, soft, moderately distended, tympanitic to percussion. Left lower quadrant transverse incision from the previous ileostomy site with small amount of erythema, fluctuant swelling underneath, nontender on palpation SKIN: Warm, moist. EXTREMITIES: Extremities have no deformities. No edema identified. NEUROLOGICAL: Awake, alert, oriented ANCILLARIES: . LABORATORY DATA: Please see below. MICROBIOLOGY: Please see below. IMAGING: abdominal x-ray Impression: Dilated bowel with multiple air-fluid levels, ileus versus obstruction. CT scan of abdomen and pelvis Surgical changes of anterior abdominal wall. Subcutaneous soft tissue anterior abdominal wall seroma. Ileus. Oral contrast is noted in the large bowels. IMPRESSION AND PLAN: S/P reversal of diverting ileostomy (07/22) history of diverticulitis with perforation postop seroma postop ileus hypokalemia will evacuate seroma at the bedside, if purulent will send for culture. I expect most of the discomfort will probably improve after this Seroma was evacuated bedside and only non-foul smelling, reddish serosanguineous fluid was evacuated. No packing was placed. Dry gauze dressing placed for coverage to catch the subsequent drainage. Expect this to heal and dry in a few days. The nylon sutures were removed. Postop ileus with dilated loops of small and large bowel. She started to have some bowel movements and is passing flatus and feeling much better. We will try her on clear liquids Replace K+ suspect from diarrhea Vital Signs Vital Signs Date Time Temp Pulse Resp B/P (MAP) Pulse Ox O2 Delivery O2 Flow Rate FiO2 08/03/17 06:54 16 08/03/17 06:33 98.5 79 127/58 (81) 92 Room Air Laboratory Data Labs 24H Laboratory Tests 2 08/02/17 22:25: Immature Granulocyte % (Auto) 0.5H, White Blood Count 10.2H, Red Blood Count 3.72L, Hemoglobin 10.9L, Hematocrit 32.4L, Mean Corpuscular Volume 87.1, Mean Corpuscular Hemoglobin 29.3, Mean Corpuscular Hemoglobin Concent 33.6, Red Cell Distribution Width 13.0, Platelet Count 347, Neutrophils (%) (Auto) 69.1H, Lymphocytes (%) (Auto) 20.1L, Monocytes (%) (Auto) 8.6H, Eosinophils (%) (Auto) 1.4, Basophils (%) (Auto) 0.3, Neutrophils # (Auto) 7.0, Lymphocytes # (Auto) 2.1, Monocytes # (Auto) 0.9H, Eosinophils # (Auto) 0.1, Basophils # (Auto) 0.0, Immature Granulocyte # (Auto) 0.1H, Nucleated Red Blood Cells % (auto) 0.0, Anion Gap 8, Glomerular Filtration Rate > 60.0, Blood Urea Nitrogen 18, Creatinine 0.64, Sodium Level 141, Potassium Level 2.5*L, Chloride Level 102, Carbon Dioxide Level 31, Calcium Level 8.4L 08/02/17 23:40: Urine Appearance HAZY, Urine Color YORDAN, Urine pH 5.0, Urine Specific [place] 1.025, Urine Protein 1+H, Urine Glucose (UA) NEGATIVE, Urine Ketones 1+H, Urine Urobilinogen 2.0H, Urine Bilirubin NEGATIVE, Urine Leukocyte Esterase NEGATIVE, Urine Blood NEGATIVE, Urine Nitrite NEGATIVE, Urine WBC (Auto) 2, Urine RBC ( Auto) 5H, Urine Hyaline Casts (Auto) 0, Urine Bacteria (Auto) NEGATIVE, Urine Squamous Epithelial Cells 1, Urine Calcium Oxalate Cryst (Auto) SMALL, Urine Mucus (Auto) LARGE, Urine Sperm (Auto) CBC/BMP Laboratory Tests 08/02/17 22:25 Red Blood Count 3.72 L, Mean Corpuscular Volume 87.1, Mean Corpuscular Hemoglobin 29.3, Mean Corpuscular Hemoglobin Concent 33.6, Red Cell Distribution Width 13.0, Neutrophils (%) (Auto) 69.1 H, Lymphocytes (%) (Auto) 20.1 L, Monocytes (%) (Auto) 8.6 H, Eosinophils (%) (Auto) 1.4, Basophils (%) ( Auto) 0.3, Neutrophils # (Auto) 7.0, Lymphocytes # (Auto) 2.1, Monocytes # (Auto ) 0.9 H, Eosinophils # (Auto) 0.1, Basophils # (Auto) 0.0, Calcium Level 8.4 L Home Medications Scheduled (Preservision Areds) 1 Cap Cap, 1 CAP PO DAILY, (Reported) Aspirin (Aspirin EC) 81 Mg Tabec, 81 MG PO QHS, (Reported) Atorvastatin Calcium (Lipitor) 10 Mg Tab, 10 MG PO QHS, (Reported) Bimatoprost (Lumigan) 50 Drop/2.5 Ml Zoey, 1 DROP OU QHS, (Reported) Cholecalciferol (Vitamin D) 1,000 Unit Tab, 2,000 UNIT PO DAILY, (Reported) Montelukast Sodium (Singulair) 10 Mg Tab, 10 MG PO QHS, (Reported) Multivitamins *[facility] STOCKED* (Thera M Plus *[facility] STOCKED*) 1 Tab Tab, 1 TAB PO DAILY, (Reported) Paroxetine Hydrochloride (Paxil) 10 Mg Tab, 10 MG PO DAILY, (Reported) Scheduled PRN Albuterol Sulfate (Proair Hfa) 108 Mcg/Act Aer, 2 PUFF INH Q4H PRN for SHORTNESS OF BREATH, (Reported) Diphenoxylate/Atropine (Lomotil 2.5-0.025 mg) 1 Tab Tab, 1 TAB PO QID PRN for DIARRHEA, (Reported) Mometasone Furoate Monohydrate (Nasonex) 120 [place]/17 Gm Naspr, 2 SPRAY NA DAILY PRN for NASAL CONGESTION, (Reported) Allergies Coded Allergies: Iodine (Verified Adverse Reaction, Mild, ITCHING, 03/10/17) Latanoprost (Verified Adverse Reaction, Mild, pt doesn't tolerate well, 03/10/17) DESIREE MICHELLE MD Aug 03, 2017 08:55
[2017-08-03] MEDS: PARoxetine 10MG TABLET PO SCH (09:15)
[2017-08-03] MEDS: PANTOPRAZOLE 40MG INJ (PROTONIX) (C9113) IV SCH (09:16)
[2017-08-03 10:00] VITALS: BP 113/54
[2017-08-03 10:02] LABS: ANION GAP 11 MEQ/L (8-16); BLOOD UREA NITROGEN 17 MG/DL (7-18); CARBON DIOXIDE LEVEL 25 MEQ/L (21-32); CHLORIDE LEVEL 105 MEQ/L (98-107); CREATININE FOR GFR 0.64 MG/DL (0.55-1.02); GLOMERULAR FILTRATION RATE > 60.0 (>39); GLUCOSE, FASTING 107 MG/DL (83-110); POTASSIUM SERUM 2.8 MEQ/L (3.5-5.1); SODIUM LEVEL 141 MEQ/L (136-145)
[2017-08-03] MEDS: metroNIDAZOLE 500 MG in APPROPRIATE DILUENT 1 EA IV SCH ×3 (10:36→21:40)
[2017-08-03] MEDS: POTASSIUM CHLORIDE 10 MEQ SR TABLET PO SCH ×2 (13:04→21:40)
[2017-08-03 14:00] VITALS: BP 116/53
[2017-08-03] MEDS: KCL 20MEQ IN D5/0.45NS 1000ML 1,000 ML IV SCH ×2 (14:29→23:00)
[2017-08-03] MEDS: CIPROFLOXACIN 400 MG in APPROPRIATE DILUENT 1 EA IV SCH (15:05)
[2017-08-03 20:00] VITALS: BP 113/58
[2017-08-03] MEDS: MONTELUKAST 10 MG TAB PO SCH (21:40)
[2017-08-04] VITALS: BP 122/60
[2017-08-04] MEDS: IPRATROPIUM 0.5MG/ALBUTEROL 2.5MG INH SOL UD 3ML (DUONEB)(J7620) NEB SCH ×4 (00:54→20:00)
[2017-08-04] MEDS: CIPROFLOXACIN 400 MG in APPROPRIATE DILUENT 1 EA IV SCH (02:33)
[2017-08-04] MEDS: metroNIDAZOLE 500 MG in APPROPRIATE DILUENT 1 EA IV SCH ×2 (03:58→10:00)
[2017-08-04 04:00] VITALS: BP 108/60
[2017-08-04 06:49] LABS: MEAN CORPUSCULAR HEMOGLOBIN 28.7 pg (27.0-33.0); MEAN CORPUSCULAR HGB CONC 31.9 g/dl (32.0-36.5); MEAN CORPUSCULAR VOLUME 89.9 fl (80.0-96.0); PLATELET COUNT, AUTOMATED 358 10^3/uL (150-450); RED CELL DISTRIBUTION WIDTH 13.2 % (11.5-14.5); WHITE BLOOD COUNT 6.3 10^3/uL (4.0-10.0)
[2017-08-04 07:12] LABS: ANION GAP 6 MEQ/L (8-16); BLOOD UREA NITROGEN 10 MG/DL (7-18); CALCIUM LEVEL 7.8 MG/DL (8.8-10.2); CARBON DIOXIDE LEVEL 28 MEQ/L (21-32); CHLORIDE LEVEL 110 MEQ/L (98-107); CREATININE FOR GFR 0.68 MG/DL (0.55-1.02); GLOMERULAR FILTRATION RATE > 60.0 (>39); GLUCOSE, FASTING 85 MG/DL (83-110); POTASSIUM SERUM 3.1 MEQ/L (3.5-5.1); SODIUM LEVEL 144 MEQ/L (136-145)
[2017-08-04] MEDS: KCL 20MEQ IN D5/0.45NS 1000ML 1,000 ML IV SCH ×3 (09:00→23:05)
[2017-08-04] MEDS: PANTOPRAZOLE 40MG INJ (PROTONIX) (C9113) IV SCH (09:09)
[2017-08-04] MEDS: PARoxetine 10MG TABLET PO SCH (09:09)
[2017-08-04] MEDS: POTASSIUM CHLORIDE 10 MEQ SR TABLET PO SCH ×2 (09:10→20:31)
[2017-08-04 10:00] VITALS: BP 116/57
--- NOTE | 2017-08-04 10:22 | ECGEPIP ---
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 Order Number: [id number] Reading MD: Yarely Gunn Measurements Intervals [place] Rate: 77 P: 60 [place]: 147 QRS: 41 QRSD: 88 T: 60 QT: 388 QTc: 440 Interpretive Statements SINUS RHYTHM WITH OCCASIONAL VENTRICULAR PREMATURE COMPLEXES NONSPECIFIC T-WAVE ABNORMALITY INCREASED RATE/ST CHANGES 07/15/17 Electronically Signed On 08-04-2017 10:21:52 EDT by Yarely Gunn
--- NOTE | 2017-08-04 12:54 | REP ---
Supine and upright abdomen: Comparison is 08/03/2017. The dilatation of the large and small bowel loops have significantly decreased. The air-fluid levels have decreased. Surgical clips are again noted in the lower abdomen and pelvis, unchanged. Impression: Improving bowel gas pattern. Signed by Jm Mazariegos MD 08/04/2017 12:46 P
--- NOTE | 2017-08-04 13:01 | IPNPDOC ---
Subjective General Date/Time Seen The patient was seen on 08/04/17 at 12:58. Subject Chief Complaint/History The patient is a 71-year-old female admitted with a reason for visit of postoperative ileus Wound seroma Patient reports feeling better. She tolerated breath diet last night. She denies nausea or vomiting. She's been having multiple loose stools yesterday. She reports her last couple of stools have some form in it now. No fevers reported Current Medications Current Medications Current Medications Albuterol/ Ipratropium (Duoneb (Ipr 0.5mg/Alb 2.5mg)) 3 ml Q2HP PRN NEB SOB/ WHEEZING; Start 08/03/17 at 01:00; Stop 09/02/17 at 00:59 Albuterol/ Ipratropium (Duoneb (Ipr 0.5mg/Alb 2.5mg)) 3 ml RQ6H NEB Last administered on 08/04/17 07:32; Start 08/03/17 at 02:00; Stop 09/02/17 at 01 :59 Ciprofloxacin 400 mg/IV Miscellaneous Supplies 200 ml @ 200 mls/hr Q12H IV Last administered on 08/03/17 03:20; Start 08/03/17 at 02:00; Stop 08/03/17 at 09:28; Status DC Ciprofloxacin 400 mg/IV Miscellaneous Supplies 200 ml @ 200 mls/hr Q12H IV Last administered on 08/04/17 02:33; Start 08/03/17 at 15:00; Stop 08/04/17 at 12:52; Status DC Fluticasone Propionate (Flonase 0.05% Nasal [place]) 2 spray DAILY PRN NA NASAL CONGESTION; Start 08/03/17 at 01:00; Stop 09/02/17 at 00:59 Home Med (Med Rec Complete!) ASDIRECTED XX ; Start 08/02/17 at 22:45; Stop at 22:45; Status DC Metoclopramide HCl (REGLAN INJection) 10 mg Q6HP PRN IV NAUSEA OR VOMITING; Start 08/03/17 at 01:00; Stop 09/02/17 at 00:59 Metronidazole 500 mg/IV Miscellaneous Supplies 100 ml @ 100 mls/hr Q6H IV Last administered on 08/03/17 04:27; Start 08/03/17 at 03:00; Stop 08/03/17 at 09:28; Status DC Metronidazole 500 mg/IV Miscellaneous Supplies 100 ml @ 100 mls/hr Q6H IV Last administered on 08/04/17 10:00; Start 08/03/17 at 10:00; Stop 08/04/17 at 12:52; Status DC Montelukast Sodium (Singulair) 10 mg QHS PO Last administered on 08/03/17 21: 40; Start 08/02/17 at 21:00; Stop 09/01/17 at 20:59 Morphine Sulfate (Morphine Sulfate Inj) 2 mg Q2HP PRN IV SEVERE PAIN (PS 8-10) Last administered on 08/03/17 06:44; Start 08/03/17 at 01:00; Stop 08/10/17 at 00:59 Morphine Sulfate (Morphine Sulfate Inj) 4 mg Q2HP PRN IV SEVERE PAIN (PS 8-10) ; Start 08/03/17 at 01:00; Stop 08/10/17 at 00:59 Ondansetron HCl (ZOFRAN INJection) 4 mg Q6HP PRN IV NAUSEA OR VOMITING Last administered on 08/03/17 04:02; Start 08/03/17 at 01:00; Stop 09/02/17 at 00 :59 Pantoprazole Sodium (Protonix) 40 mg DAILY IV Last administered on 08/04/17 09:09; Start 08/03/17 at 09:00; Stop 09/02/17 at 08:59 Paroxetine HCl (PAXil) 10 mg DAILY PO Last administered on 08/04/17 09:09; Start 08/03/17 at 09:00; Stop 09/02/17 at 08:59 Potassium Chloride/Dextrose/ Sod Cl 1,000 ml @ 60 mls/hr [id number] IV Last administered on 08/03/17 23:00; Start 08/03/17 at 13:00; Stop 09/02/17 at 12 :59 Potassium Chloride (Micro-K Extencaps) 40 meq BID PO Last administered on 08/04 09:10; Start 08/03/17 at 09:00; Stop 08/06/17 at 08:59 Promethazine HCl (PHENERGAN INJection) 12.5 mg Q6HP PRN IV NAUSEA Last administered on 08/03/17 10:37; Start 08/03/17 at 01:00; Stop 09/02/17 at 00 :59 Sodium Chloride 1,000 ml @ 125 mls/hr Q8H IV Last administered on 08/03/17t 01:15; Start 08/03/17 at 00:49; Stop 08/03/17 at 11:39; Status DC Allergies Coded Allergies: Iodine (Verified Adverse Reaction, Mild, ITCHING, 03/10/17) Latanoprost (Verified Adverse Reaction, Mild, pt doesn't tolerate well, 03/10/17) Objective Physical Examination Examination GENERAL APPEARANCE:Patient seen, laying in bed, awake, alert, and oriented. Comfortable, in no acute distress. SKIN: Warm and moist. HEENT: Normocephalic, atraumatic. [place] palpebral conjunctiva, anicteric sclerae. Lips and mucosa appear moist. NECK: Supple, no thyromegaly. No obvious jugular venous distention. LUNGS: Clear to auscultation bilaterally. No wheezing appreciated. HEART: No chest wall abnormalities. Regular rate and rhythm with no murmurs appreciated. ABDOMEN: Abdomen is round, soft, minimally distended. Left lower quadrant incision without any further erythema. No further drainage from the incision site. Sutures have been removed yesterday. EXTREMITIES: Extremities have no deformities. No edema identified. Vital Signs Vital Signs Date Time Temp Pulse Resp B/P (MAP) Pulse Ox O2 Delivery O2 Flow Rate FiO2 08/04/17 10:00 98.5 80 18 116/57 (76) 97 Room Air I&Os I&O- Last 24 Hours up to 6 AM 08/05/17 06:00 Intake Total 240 ml Balance 240 ml Laboratory Data Labs 24H Laboratory Tests 2 08/04/17 06:42: Nucleated Red Blood Cells % (auto) 0.0, Anion Gap 6L, Glomerular Filtration Rate > 60.0, Blood Urea Nitrogen 10, Creatinine 0.68, Sodium Level 144, Potassium Level 3.1L, Chloride Level 110H, Carbon Dioxide Level 28, Calcium Level 7.8L CBC/BMP Laboratory Tests 08/04/17 06:42 Red Blood Count 3.56 L, Mean Corpuscular Volume 89.9, Mean Corpuscular Hemoglobin 28.7, Mean Corpuscular Hemoglobin Concent 31.9 L, Red Cell Distribution Width 13.2, Calcium Level 7.8 L Impression S/P reversal of diverting ileostomy (07/22) history of diverticulitis with perforation postop seroma - seroma was evacuated yesterday on the bedside. No signs of purulent infection postop ileus hypokalemia improved Advance diet as tolerated Continue with potassium replacement. Most likely due from the diarrhea. Ambulate as tolerated Plan / VTE VTE Prophylaxis Ordered?: Yes DESIREE MICHELLE MD Aug 04, 2017 13:01
[2017-08-04 14:00] VITALS: BP 120/68
[2017-08-04 20:00] VITALS: BP 144/65
[2017-08-04] MEDS: MONTELUKAST 10 MG TAB PO SCH (20:31)
[2017-08-05] VITALS: BP 140/72
[2017-08-05] MEDS: IPRATROPIUM 0.5MG/ALBUTEROL 2.5MG INH SOL UD 3ML (DUONEB)(J7620) NEB SCH ×3 (02:00→13:21)
[2017-08-05 04:00] VITALS: BP 150/74
[2017-08-05 07:02] LABS: MEAN CORPUSCULAR HEMOGLOBIN 28.5 pg (27.0-33.0); MEAN CORPUSCULAR HGB CONC 32.2 g/dl (32.0-36.5); MEAN CORPUSCULAR VOLUME 88.5 fl (80.0-96.0); PLATELET COUNT, AUTOMATED 356 10^3/uL (150-450); RED CELL DISTRIBUTION WIDTH 13.2 % (11.5-14.5); WHITE BLOOD COUNT 5.5 10^3/uL (4.0-10.0)
[2017-08-05 07:19] LABS: ANION GAP 7 MEQ/L (8-16); BLOOD UREA NITROGEN 9 MG/DL (7-18); CALCIUM LEVEL 7.9 MG/DL (8.8-10.2); CARBON DIOXIDE LEVEL 23 MEQ/L (21-32); CHLORIDE LEVEL 113 MEQ/L (98-107); CREATININE FOR GFR 0.64 MG/DL (0.55-1.02); GLOMERULAR FILTRATION RATE > 60.0 (>39); GLUCOSE, FASTING 93 MG/DL (83-110); POTASSIUM SERUM 3.5 MEQ/L (3.5-5.1); SODIUM LEVEL 143 MEQ/L (136-145)
[2017-08-05] MEDS: POTASSIUM CHLORIDE 10 MEQ SR TABLET PO SCH (08:26)
[2017-08-05] MEDS: PANTOPRAZOLE 40MG INJ (PROTONIX) (C9113) IV SCH (08:26)
[2017-08-05] MEDS: PARoxetine 10MG TABLET PO SCH (08:26)
[2017-08-05 10:00] VITALS: BP 143/62
[2017-08-05] MEDS ORDERED: K-TA10TA2 PO (12:54)
--- NOTE | 2017-08-05 13:41 | REP ---
ABDOMINAL SERIES: Supine and erect views of the abdomen demonstrate no evidence of free intraperitoneal air. There is persistent moderate small bowel dilatation with air fluid levels on the upright view appearing similar to recent exams of 08/03/2017 and 08/04/2017. Metallic clips are seen in the abdomen and pelvis. There are phleboliths in the pelvis. IMPRESSION: Persistent small bowel dilatation with air fluid levels. Signed by Jm Faulkner MD 08/05/2017 05:50 P
== END 2017-08-05 14:00 | disposition home or self-care (01) | DRG 920 ==
LOC: M ED 17:17 → M ED INP 08-03 00:49 → M MS4PR 08-03 02:15
PROVIDERS: ADMIT Surgery; ATTEND Surgery
PROC: 0W9F3ZZ Drainage of Abdominal Wall, Percutaneous Approach (ICD-10-PCS; principal; 2017-08-03)
DX: K91.872 Postprocedural seroma of a digestive system organ or structure following a digestive system procedure (principal); K91.30 Postprocedural intestinal obstruction, unspecified as to partial versus complete; E87.6 Hypokalemia; J44.9 Chronic obstructive pulmonary disease, unspecified; I10 Essential (primary) hypertension; E78.00 Pure hypercholesterolemia, unspecified; H40.9 Unspecified glaucoma; H35.30 Unspecified macular degeneration; Z90.49 Acquired absence of other specified parts of digestive tract; Z79.899 Other long term (current) drug therapy

== ENCOUNTER 2017-08-20 12:32 | Inpatient (IN) | payer MEDICARE, BC, OTHER ==
[~2017-08-20] VITALS: Ht 152.4 cm; Wt 70.5 kg
[2017-08-20] MEDS: PARoxetine 10MG TABLET PO SCH (09:00)
[~2017-08-20 12:32] MED LIST changes: +ASPI81TAEC PO; +ATORVASTATIN 10 MG TAB PO SCH; +K-TA10TA2 PO; +LOMO2.5T PO; +MOME50SP; +MONTELUKAST 10 MG TAB PO SCH; +VITMTA PO
[2017-08-20 15:13] LABS: BASO % 0.3 % (0.0-1.0); EOS # 0.1 10^3/uL (0.0-0.50); EOS % 1.1 % (0.0-3.0); IMMATURE GRANULOCYTE % 0.4 % (0-0); LYMPH # 2.9 10^3/uL (1.5-4.5); MEAN CORPUSCULAR HEMOGLOBIN 27.9 pg (27.0-33.0); MEAN CORPUSCULAR HGB CONC 32.4 g/dl (32.0-36.5); MEAN CORPUSCULAR VOLUME 86.2 fl (80.0-96.0); MONO # 0.6 10^3/uL (0.0-0.8); MONO % 6.7 % (0.0-5.0); NEUTROPHILS # 5.4 10^3/uL (1.8-7.7); NEUTROPHILS % 59.5 % (36.0-66.0); PLATELET COUNT, AUTOMATED 357 10^3/uL (150-450); RED CELL DISTRIBUTION WIDTH 13.5 % (11.5-14.5)
[2017-08-20 15:24] LABS: INR 1.04
[2017-08-20 15:34] LABS: ALBUMIN/GLOBULIN RATIO 0.73 (1.00-1.93); ALKALINE PHOSPHATASE 57 U/L (45-117); ALT/SGPT 15 U/L (12-78); ANION GAP 10 MEQ/L (8-16); AST/SGOT 16 U/L (7-37); BILIRUBIN,DIRECT 0.1 MG/DL (0.0-0.2); BILIRUBIN,TOTAL 0.5 MG/DL (0.2-1.0); BLOOD UREA NITROGEN 19 MG/DL (7-18); CALCIUM LEVEL 8.8 MG/DL (8.8-10.2); CARBON DIOXIDE LEVEL 26 MEQ/L (21-32); CHLORIDE LEVEL 107 MEQ/L (98-107); CREATININE FOR GFR 0.69 MG/DL (0.55-1.02); GLOMERULAR FILTRATION RATE > 60.0 (>39); GLUCOSE, FASTING 106 MG/DL (83-110); POTASSIUM SERUM 3.3 MEQ/L (3.5-5.1); SODIUM LEVEL 143 MEQ/L (136-145); TOTAL PROTEIN 7.1 GM/DL (6.4-8.2)
[2017-08-20] MEDS ORDERED: diphenhydrAMINE INJ 50MG/ML VIAL (J1200) IV STA (16:10)
[2017-08-20] MEDS ORDERED: ISOVUE-370 76% 100ML VIAL (Q9967) As Ordered ONE (16:25)
[2017-08-20 16:52] LABS: CALCIUM OXALATE CRYSTALS LARGE
--- NOTE | 2017-08-20 17:10 | REPUSA ---
CT of the abdomen and pelvis with contrast Clinical statement: Pain. Technique: Multiple axial CT images were obtained from the base of the lungs through the floor of the pelvis utilizing 5 mm axial slices after administration of nonionic intravenous contrast. Coronal an d sagittal reconstructions were also obtained. Comparison: 08/03/2017. Findings: Chest: The visualized lung bases are clear. Abdomen: The liver, spleen, pancreas, kidneys, gallbladder, and adrenal glands are unremarkable. Ther e is a tiny subcentimeter simple cyst in the right lobe of the liver. There is a large simple cyst in the upper right kidney measuring 5.9 cm. The aorta is within normal limits. There is no evidence of abdominal lymphadenopathy. There is a small amount of perisplenic ascites. Pelvis: There is a large amount of fluid filling the colon. Diffuse colonic bowel wall thickening is noted. The distal anastomosis demonstrates a focal area of narrowing. The urinary bladder is within n ormal limits. The other pelvic structures appear grossly intact. There is no evidence of pelvic lymph adenopathy. There is a small amount of perihepatic ascites. Bones: There are no suspicious osseous abnormalities seen. Impression: 1. Moderately severe colonic ileus with large amount of fluid and bowel wall thickening. Findings are suspicious for colitis, likely infectious in nature. 2. There is a focal area narrowing at the distal anastomotic site. It is uncertain whether this repre sents a true focus of obstruction. Follow-up is recommended as clinically indicated. 3. Large simple right renal cyst. 4. Tiny cyst in the right lobe of the liver.
[2017-08-20] MEDS ORDERED: ONDANSETRON 4MG/2ML VIAL (J2405) IV PRN (17:45)
[2017-08-20] MEDS ORDERED: MORPHINE 4 MG/ML 1ML SYRINGE IV PRN (17:45)
[2017-08-20] MEDS ORDERED: METOCLOPRAMIDE INJ 10MG/2ML VIAL (J2765) IV PRN (17:45)
[2017-08-20] MEDS ORDERED: PROMETHAZINE INJ 25 MG/ML VIAL (J2550) IV PRN (17:45)
[2017-08-20] MEDS: MORPHINE 2 MG/ML 1ML SYRINGE IV PRN ×2 (18:21→20:49)
[2017-08-20] MEDS: NS 1,000 ML IV SCH (18:21)
[2017-08-20 19:00] VITALS: BP 162/93
[2017-08-20] MEDS ORDERED: ALBUTEROL 90 MCG/ACT 8GM HFA INHALER INH PRN (19:00)
[2017-08-20] MEDS ORDERED: FLUTICASONE PROP 0.05% NASAL SPRAY 16 GM (FLONASE) PRN (19:00)
[2017-08-20] MEDS: PANTOPRAZOLE 40MG INJ (PROTONIX) (C9113) IV SCH (20:02)
[2017-08-20] MEDS: CIPROFLOXACIN 400 MG in APPROPRIATE DILUENT 1 EA IV SCH (20:52)
--- NOTE | 2017-08-20 21:08 | REP ---
ABDOMEN, FLAT UPRIGHT PA CHEST, THREE VIEWS: HISTORY: Abdominal pain. COMPARISON: 08/02/2017. Air is present in small and large intestine. There are several mildly dilated loops of small intestine that are decreased in caliber compared to the previous study. Several air fluid levels are present. There is no pneumoperitoneum. Linear density is present in the right lower lobe consistent with scar. The left lung is clear. Surgical clips are present in the abdomen and pelvis. IMPRESSION: The above findings may represent ileus or partial small bowel obstruction that are decreased compared to the previous study. Signed by Wes Thompson MD 08/21/2017 08:38 A
[2017-08-20] MEDS: ATORVASTATIN 10 MG TAB PO SCH (21:22)
[2017-08-20] MEDS: MONTELUKAST 10 MG TAB PO SCH (21:22)
[2017-08-20 22:00] VITALS: BP 144/68
[2017-08-20] MEDS: metroNIDAZOLE 500 MG in APPROPRIATE DILUENT 1 EA IV SCH (22:09)
[2017-08-21 02:00] VITALS: BP 135/65
[2017-08-21] MEDS: metroNIDAZOLE 500 MG in APPROPRIATE DILUENT 1 EA IV SCH ×3 (04:21→20:10)
[2017-08-21] MEDS: NS 1,000 ML IV SCH ×3 (04:21→18:34)
[2017-08-21 06:00] VITALS: BP 150/67
[2017-08-21] MEDS: CIPROFLOXACIN 400 MG in APPROPRIATE DILUENT 1 EA IV SCH ×2 (06:19→18:35)
--- NOTE | 2017-08-21 07:25 | ECGEPIP ---
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
[2017-08-21] MEDS: PARoxetine 10MG TABLET PO SCH (08:05)
[2017-08-21] MEDS: PANTOPRAZOLE 40MG INJ (PROTONIX) (C9113) IV SCH (08:05)
[2017-08-21] MEDS: MORPHINE 2 MG/ML 1ML SYRINGE IV PRN ×3 (08:06→20:44)
[2017-08-21 10:00] VITALS: BP 142/62
[2017-08-21 14:00] VITALS: BP 156/70
[2017-08-21 18:00] VITALS: BP 140/60
[2017-08-21] MEDS: ATORVASTATIN 10 MG TAB PO SCH (20:09)
[2017-08-21] MEDS: MONTELUKAST 10 MG TAB PO SCH (20:10)
[2017-08-21 22:00] VITALS: BP 153/67
[2017-08-22] VITALS (7 sets, daily range): BP systolic 120–162; BP diastolic 67–88
[2017-08-22] MEDS: metroNIDAZOLE 500 MG in APPROPRIATE DILUENT 1 EA IV SCH ×3 (03:27→21:23)
[2017-08-22] MEDS: NS 1,000 ML IV SCH ×3 (03:28→21:27)
[2017-08-22] MEDS: CIPROFLOXACIN 400 MG in APPROPRIATE DILUENT 1 EA IV SCH ×2 (06:08→18:19)
[2017-08-22 06:32] LABS: MEAN CORPUSCULAR HEMOGLOBIN 27.7 pg (27.0-33.0); MEAN CORPUSCULAR HGB CONC 31.6 g/dl (32.0-36.5); MEAN CORPUSCULAR VOLUME 87.5 fl (80.0-96.0); PLATELET COUNT, AUTOMATED 254 10^3/uL (150-450); RED CELL DISTRIBUTION WIDTH 13.7 % (11.5-14.5); WHITE BLOOD COUNT 5.6 10^3/uL (4.0-10.0)
[2017-08-22 07:00] LABS: ANION GAP 10 MEQ/L (8-16); BLOOD UREA NITROGEN 12 MG/DL (7-18); CALCIUM LEVEL 7.6 MG/DL (8.8-10.2); CARBON DIOXIDE LEVEL 25 MEQ/L (21-32); CHLORIDE LEVEL 111 MEQ/L (98-107); CREATININE FOR GFR 0.54 MG/DL (0.55-1.02); GLOMERULAR FILTRATION RATE > 60.0 (>39); GLUCOSE, FASTING 89 MG/DL (83-110); SODIUM LEVEL 146 MEQ/L (136-145)
[2017-08-22 07:09] LABS: POTASSIUM SERUM 2.6 MEQ/L (3.5-5.1)
[2017-08-22] MEDS ORDERED: POTASSIUM CHLORIDE 10 MEQ SR TABLET PO ONE (07:30)
[2017-08-22] MEDS: PANTOPRAZOLE 40MG INJ (PROTONIX) (C9113) IV SCH (08:06)
[2017-08-22] MEDS: PARoxetine 10MG TABLET PO SCH (08:06)
[2017-08-22] MEDS: MORPHINE 2 MG/ML 1ML SYRINGE IV PRN (09:02)
--- NOTE | 2017-08-22 10:28 | IPN ---
DATE: 08/22/2017 The patient has had some progress since yesterday, had a bowel movement yesterday and feels much less distended. Still has some discomfort and pain in the left lower quadrant area and this is where she has some distending colon on her x-rays. On her physical exam, her abdomen is still protuberant and tympanitic, but much better than it was yesterday and each day she has some slow but progressive improvement. IMPRESSION AND PLAN: The patient has some slow improvement of her partial obstruction and will continue on the antibiotics, IV fluids, but given that she is still distended, I would like to hold off on advancing her diet to clear liquids for right now and we will probably start her on some clear liquids tomorrow. Disposition may depend on how much she has for bowel movements and how "obstructed" she is prior to discharge and may be that she needs to get balloon dilated prior to discharge, but will see how she does over the next 24-48.
--- NOTE | 2017-08-22 10:30 | HPE ---
DATE OF ADMISSION: 08/20/2017 CHIEF COMPLAINT: Abdominal pain, nausea without vomiting. BRIEF HISTORY OF PRESENT ILLNESS: Patient has had a complicated surgical history with perforated diverticulitis and laparoscopic reversal which resulted in a diverting ileostomy, had the ileostomy reversed and since that time has had some ongoing problems with, what appears to be, a partial obstruction. Initially, this was suggestive of a small bowel obstruction but, I anticipate much more of an anastomotic stricture at the colonic area. The colon appears dilated this time, and on studies she has some thickening of the colon consistent with possible colitis, possibly infectious in nature. She is not having any fevers or chills. States that up till now, she has been having soft, small stools, and on admission, her white count is 9000. PAST MEDICAL HISTORY: Is significant for; History of perforated diverticulitis. History of chronic obstructive pulmonary disease (COPD). History of hypertension. History of glaucoma. History of macular degeneration. History of hypercholesterolemia. History of diverting ileostomy. History of colonic resections and colostomy reversal. PHYSICAL EXAM: Reveals an elderly female who looks stated age. HEENT is unremarkable. NECK: Supple without adenopathy. LUNGS: Are clear to auscultation without crackles, wheezes, or rhonchi. Heart is regular without murmur. Abdomen is softly distended, tympanitic, without significant guarding or rebound. EXTREMITIES: Warm, well-perfused. IMPRESSION/PLAN: Patient has a large bowel obstruction most likely anastomotic narrowing, may be that she has an infection associated with this narrowing and those combination of the two may have made a complete obstruction at this point. Hopefully, with antibiotics, intravenous (IV) fluids, being nothing by mouth, we can get some improvement over the next 12-24 hours. Once she has improved substantially, the question is whether she needs a balloon dilatation prior to discharge or whether she will be able to be discharged home with outpatient colonoscopy and balloon dilatation. At this point, my recommendation is to proceed with this nothing by mouth, IV fluids, and will see how she is doing in the morning.
[2017-08-22] MEDS: MONTELUKAST 10 MG TAB PO SCH (20:05)
[2017-08-22] MEDS: ATORVASTATIN 10 MG TAB PO SCH (20:05)
[2017-08-23 04:00] VITALS: BP 136/63
[2017-08-23] MEDS: metroNIDAZOLE 500 MG in APPROPRIATE DILUENT 1 EA IV SCH ×3 (04:07→20:49)
[2017-08-23] MEDS: NS 1,000 ML IV SCH (04:07)
[2017-08-23] MEDS: CIPROFLOXACIN 400 MG in APPROPRIATE DILUENT 1 EA IV SCH ×2 (06:39→18:31)
[2017-08-23 07:07] LABS: MEAN CORPUSCULAR HEMOGLOBIN 27.7 pg (27.0-33.0); MEAN CORPUSCULAR HGB CONC 31.7 g/dl (32.0-36.5); MEAN CORPUSCULAR VOLUME 87.4 fl (80.0-96.0); PLATELET COUNT, AUTOMATED 244 10^3/uL (150-450); RED CELL DISTRIBUTION WIDTH 13.6 % (11.5-14.5); WHITE BLOOD COUNT 5.3 10^3/uL (4.0-10.0)
[2017-08-23 07:34] LABS: ANION GAP 10 MEQ/L (8-16); BLOOD UREA NITROGEN 6 MG/DL (7-18); CALCIUM LEVEL 7.5 MG/DL (8.8-10.2); CARBON DIOXIDE LEVEL 24 MEQ/L (21-32); CHLORIDE LEVEL 110 MEQ/L (98-107); CREATININE FOR GFR 0.45 MG/DL (0.55-1.02); GLOMERULAR FILTRATION RATE > 60.0 (>39); GLUCOSE, FASTING 82 MG/DL (83-110); POTASSIUM SERUM 2.6 MEQ/L (3.5-5.1); SODIUM LEVEL 144 MEQ/L (136-145)
[2017-08-23] MEDS ORDERED: POTASSIUM CHLORIDE 10 MEQ SR TABLET PO ONE ×2 (08:00→12:00)
[2017-08-23] MEDS: PANTOPRAZOLE 40MG INJ (PROTONIX) (C9113) IV SCH (08:09)
[2017-08-23] MEDS ORDERED: SLF 3 ML SYR IV PRN (08:15)
[2017-08-23 08:34] VITALS: BP 149/69
[2017-08-23] MEDS: PARoxetine 10MG TABLET PO SCH (10:05)
[2017-08-23 12:20] VITALS: BP 141/68
[2017-08-23] MEDS: SLF 3 ML SYR IV SCH ×2 (13:13→20:50)
[2017-08-23 16:00] VITALS: BP 147/68
[2017-08-23 20:00] VITALS: BP 146/70
[2017-08-23] MEDS: MONTELUKAST 10 MG TAB PO SCH (20:00)
[2017-08-23] MEDS: ATORVASTATIN 10 MG TAB PO SCH (20:52)
[2017-08-24] VITALS: BP 140/72
[2017-08-24 04:00] VITALS: BP 136/68
[2017-08-24] MEDS: metroNIDAZOLE 500 MG in APPROPRIATE DILUENT 1 EA IV SCH (04:23)
[2017-08-24] MEDS: SLF 3 ML SYR IV SCH ×2 (06:07→14:00)
[2017-08-24] MEDS: CIPROFLOXACIN 400 MG in APPROPRIATE DILUENT 1 EA IV SCH (06:07)
[2017-08-24 07:11] LABS: MEAN CORPUSCULAR HEMOGLOBIN 27.6 pg (27.0-33.0); MEAN CORPUSCULAR HGB CONC 32.3 g/dl (32.0-36.5); MEAN CORPUSCULAR VOLUME 85.5 fl (80.0-96.0); PLATELET COUNT, AUTOMATED 250 10^3/uL (150-450); RED CELL DISTRIBUTION WIDTH 13.5 % (11.5-14.5); WHITE BLOOD COUNT 4.8 10^3/uL (4.0-10.0)
[2017-08-24 07:35] LABS: ANION GAP 12 MEQ/L (8-16); BLOOD UREA NITROGEN 4 MG/DL (7-18); CALCIUM LEVEL 7.7 MG/DL (8.8-10.2); CARBON DIOXIDE LEVEL 22 MEQ/L (21-32); CHLORIDE LEVEL 109 MEQ/L (98-107); CREATININE FOR GFR 0.61 MG/DL (0.55-1.02); GLOMERULAR FILTRATION RATE > 60.0 (>39); GLUCOSE, FASTING 94 MG/DL (83-110); POTASSIUM SERUM 2.4 MEQ/L (3.5-5.1); SODIUM LEVEL 143 MEQ/L (136-145)
[2017-08-24 08:00] VITALS: BP 147/76
[2017-08-24] MEDS: PANTOPRAZOLE 40MG INJ (PROTONIX) (C9113) IV SCH (08:58)
[2017-08-24] MEDS: PARoxetine 10MG TABLET PO SCH (08:58)
[2017-08-24] MEDS ORDERED: POTASSIUM CHLORIDE 10 MEQ SR TABLET PO SCH (09:00)
[2017-08-24 12:00] VITALS: BP 174/80
[2017-08-24] MEDS ORDERED: CIPR-249 PO (13:12)
[2017-08-24] MEDS ORDERED: FLAG500T PO (13:12)
[2017-08-24] MEDS ORDERED: metroNIDAZOLE (FLAGYL) 500 MG TAB PO SCH (14:00)
[2017-08-24] MEDS ORDERED: CIPROFLOXACIN 500 MG TAB PO SCH (18:00)
--- NOTE | 2017-08-28 14:27 | DSES ---
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 Associated diagnosis is colitis, history of perforated diverticulitis, history of chronic obstructive pulmonary disease (COPD), history of hypertension, history of glaucoma, history of the macular degeneration, history of hypercholesterolemia, history of diverting ileostomy, history of colonic resection and colostomy reversal. BRIEF HISTORY OF PRESENT ILLNESS: The patient has had a complicated history with a perforated diverticulitis, had a laparoscopic reversal, which resulted in a diverting ileostomy. Ileostomy has been reversed and at that time has had some ongoing obstructive patterns, and at this time, on her CT scan, she has some colitis in the descending colon but also some evidence of probable an anastomotic stricture. HOSPITAL COURSE SUMMARY: The patient was admitted with the above diagnosis. was given intravenous (IV) fluids, IV antibiotics and was kept nothing by mouth. The patient had some rapidly progressive improvement and essentially did well over the first 24 hours, feeling much better the first day but still very distended, and then she looked even the better the next day, and gradually her abdominal distension improved quite nicely, and then, she opened up on 08/22/2017 having 10 liquid bowel movements. Each day after that she started having additional bowel movements without significant problems. Her clinical appearance improved. Her abdominal tenderness and distension improved nicely, and eventually, she was discharged home on her usual medications, which include albuterol, aspirin, atorvastatin, Lumigan, vitamin D, Lomotil as needed and Nasonex, Singulair, multivitamins, Paxil, K tablets, PreserVision pressure and was to continue on initial 5 days of antibiotics of Cipro and Flagyl. She was to followup in 2 weeks, sooner if she any question, concerns, fevers or chills or she had any complaints at this time. I anticipate after her infectious issue has resolved and has gotten some time to resolve that repeat colonoscopy as an outpatient will be performed with probable dilatation of the anastomosis. She understands the current plan and will followup in surgery office in 2 weeks.
== END 2017-08-24 15:00 | disposition home or self-care (01) | DRG 390 ==
LOC: M ED 12:32 → M ED INP 17:31 → M MSPAV 18:45 → M PED 08-22 22:21
PROVIDERS: ADMIT Surgery; ATTEND Surgery
DX: K56.609 Unspecified intestinal obstruction, unspecified as to partial versus complete obstruction (principal); J44.9 Chronic obstructive pulmonary disease, unspecified; I10 Essential (primary) hypertension; H40.9 Unspecified glaucoma; E78.00 Pure hypercholesterolemia, unspecified; K52.9 Noninfective gastroenteritis and colitis, unspecified; Z79.899 Other long term (current) drug therapy

== ENCOUNTER → 2017-09-29 | Outpatient (CLI) | payer MEDICARE, BC, OTHER ==
[~2017-09-29] MED LIST changes: -ATORVASTATIN 10 MG TAB PO SCH; -MONTELUKAST 10 MG TAB PO SCH
--- NOTE | 2017-09-29 11:17 | REP ---
DIAGNOSTIC MAMMOGRAM RIGHT BREAST WITH RIGHT BREAST ULTRASOUND: Patient reports history of palpable abnormality in the region of the right axilla and axillary tail. The breast is also tender in this region. There is a family history of breast cancer in sister. Comparison made with multiple prior exams, most recent of which is 05/19/2017. The area of the palpable abnormality is marked on the skin with a triangular marker. Multiple views of the right breast show no change since the prior exam with mild scattered fibroglandular tissue. A stable nodule probably representing an intramammary lymph node is seen in the upper outer quadrant of the right breast. There are normal sized right axillary lymph nodes present. There is no mammographic abnormality at the site of the reported palpable abnormality. Real-time sonographic evaluation of the right breast is performed in the region of the axillary tail in the region of the palpable abnormality. No cystic or solid nodule is seen. IMPRESSION: ACR 2 benign. No mass or clustered microcalcifications on the mammogram. There is no mammographic or sonographic evidence of a mass at the site of a reported palpable abnormality in the region of the right axillary tail. Clinical correlation and followup recommended. Recommend followup bilateral screening mammogram in May 2018. BI-RADS/ACR category 2 mammogram. Benign finding(s). Routine annual screening mammography (for women over age 40). This mammogram was interpreted with the aid of an FDA-approved computer-aided detection system. A. Negative x-ray reports should not delay biopsy if a dominant or clinically suspicious mass is present. B. Four to eight percent of cancers are not identified by x-ray. C. Adenosis and dense breasts may obscure an underlying neoplasm. The patient states she had a clinical breast exam in 09/2017. The patient letter being requested is M2. Signed by Jm Faulkner MD 09/29/2017 08:37 P
== END ==
LOC: M RAD 10:00
PROVIDERS: ATTEND Nurse Practitioner Women's Health
DX: N63.31 Unspecified lump in axillary tail of the right breast (principal); Z80.3 Family history of malignant neoplasm of breast
CPT/HCPCS: 76642; G0206

== ENCOUNTER → 2017-11-17 | Outpatient (REF) | payer MEDICARE, OTHER ==
[2017-11-17 20:44] LABS: ALBUMIN 3.4 GM/DL (3.2-5.2); ALBUMIN/GLOBULIN RATIO 0.81 (1.00-1.93); ALKALINE PHOSPHATASE 50 U/L (45-117); ALT/SGPT 28 U/L (12-78); ANION GAP 11 MEQ/L (8-16); AST/SGOT 29 U/L (7-37); BILIRUBIN,TOTAL 0.4 MG/DL (0.2-1.0); BLOOD UREA NITROGEN 16 MG/DL (7-18); CALCIUM LEVEL 8.9 MG/DL (8.8-10.2); CARBON DIOXIDE LEVEL 28 MEQ/L (21-32); CHLORIDE LEVEL 104 MEQ/L (98-107); CREATININE FOR GFR 0.87 MG/DL (0.55-1.30); GLOMERULAR FILTRATION RATE > 60.0 (>39); GLUCOSE, FASTING 81 MG/DL (70-100); POTASSIUM SERUM 3.7 MEQ/L (3.5-5.1); SODIUM LEVEL 143 MEQ/L (136-145); TOTAL PROTEIN 7.6 GM/DL (6.4-8.2)
== END ==
LOC: M LABDRAW1 15:05
DX: R91.1 Solitary pulmonary nodule (principal)
CPT/HCPCS: 80053

== ENCOUNTER → 2017-11-21 | Outpatient (CLI) | payer MEDICARE, BC, OTHER ==
[~2017-11-21] MED LIST changes: -ASPI1TAB PO; -ASPI81TAEC PO; -BACT800T5 PO; -BIMA01SOL OU; -CIPR-249 PO; -DIPH2.5T14 PO; -FLAG500T PO; -HYDR25TAB PO; -IRBE75TA5 PO; +ISOVUE-370 76% 100ML VIAL (Q9967) As Ordered; -K-TA10TA2 PO; -KETO10TAB PO; -LIPI10TA PO; -LOMO2.5T PO; -MOME50SP; -NORCOTAB PO; -OMEP20CA3 PO; -PAXI10TA12 PO; -PRESCAP PO; -PROAAER10 INH; -SING10TA32 PO; -VITA100066 PO; -VITMTA PO; -[UNRECOGNIZED DRUG - CODE] XX; -[UNRECOGNIZED DRUG - CODE] XX; -[UNRECOGNIZED DRUG - OTHER]; -[UNRECOGNIZED DRUG - OTHER]; -[UNRECOGNIZED DRUG - OTHER] XX; -[UNRECOGNIZED DRUG - SUPPLY]
== END ==
LOC: M RAD 08:22
DX: R91.1 Solitary pulmonary nodule (principal); K76.89 Other specified diseases of liver; N28.1 Cyst of kidney, acquired
CPT/HCPCS: Q9967

== ENCOUNTER → 2018-02-23 | Outpatient (REF) | payer MEDICARE, OTHER ==
[2018-02-23 11:59] LABS: BASO # 0.1 10^3/uL (0.0-0.2); BASO % 0.9 % (0.0-1.0); EOS # 0.2 10^3/uL (0.0-0.50); EOS % 3.2 % (0.0-3.0); HEMATOCRIT 35.3 % (36.0-47.0); HEMOGLOBIN 11.5 g/dl (12.0-15.5); LYMPH # 2.5 10^3/uL (1.5-4.5); LYMPH % 36.7 % (24.0-44.0); MEAN CORPUSCULAR HEMOGLOBIN 28.8 pg (27.0-33.0); MEAN CORPUSCULAR HGB CONC 32.6 g/dl (32.0-36.5); MEAN CORPUSCULAR VOLUME 88.5 fl (80.0-96.0); MONO # 0.6 10^3/uL (0.0-0.8); MONO % 8.7 % (0.0-5.0); NEUTROPHILS # 3.5 10^3/uL (1.8-7.7); NEUTROPHILS % 50.5 % (36.0-66.0); PLATELET COUNT, AUTOMATED 249 10^3/uL (150-450); RED BLOOD COUNT 3.99 10^6/uL (4.00-5.40); RED CELL DISTRIBUTION WIDTH 14.5 % (11.5-14.5); RETICULOCYTE # 41.5 10^9/L (17-77); WHITE BLOOD COUNT 6.8 10^3/uL (4.0-10.0)
[2018-02-23 12:29] LABS: ALBUMIN 3.5 GM/DL (3.2-5.2); ALKALINE PHOSPHATASE 57 U/L (45-117); ALT/SGPT 20 U/L (12-78); ANION GAP 6 MEQ/L (8-16); AST/SGOT 18 U/L (7-37); BILIRUBIN,TOTAL 0.6 MG/DL (0.2-1.0); BLOOD UREA NITROGEN 23 MG/DL (7-18); C REACTIVE PROTEIN QUANTITATIV < 0.30 MG/DL (0.00-0.30); CALCIUM LEVEL 8.8 MG/DL (8.8-10.2); CARBON DIOXIDE LEVEL 30 MEQ/L (21-32); CHLORIDE LEVEL 106 MEQ/L (98-107); CHOLESTEROL LEVEL 140 MG/DL (<200); CHOLESTEROL RISK RATIO 2.187 (<5); CPK CREATINE PHOSPHOKINASE 116 U/L (26-192); CREATININE FOR GFR 0.87 MG/DL (0.55-1.30); FREE T4 0.92 NG/DL (0.76-1.46); GLOMERULAR FILTRATION RATE > 60.0 (>39); GLUCOSE, FASTING 78 MG/DL (70-100); HDL CHOLESTEROL 64 MG/DL (>40); LDL CHOLESTEROL 47.2 MG/DL (<100); MAGNESIUM LEVEL 2.3 MG/DL (1.8-2.4); NON-HDL-C 76 MG/DL; NT-PRO BNP 451 PG/ML (<125); POTASSIUM SERUM 3.6 MEQ/L (3.5-5.1); SODIUM LEVEL 142 MEQ/L (136-145); TRIGLYCERIDES LEVEL 144 MG/DL (<150)
== END ==
LOC: M SFHCPLAZ 10:02
DX: N18.3 Chronic kidney disease, stage 3 (moderate) (principal); I13.0 Hypertensive heart and chronic kidney disease with heart failure and stage 1 through stage 4 chronic kidney disease, or unspecified chronic kidney disease; E78.2 Mixed hyperlipidemia; I50.32 Chronic diastolic (congestive) heart failure
CPT/HCPCS: 82550

== ENCOUNTER → 2018-03-03 | Outpatient (REF) | payer MEDICARE, OTHER ==
[2018-03-03 18:18] LABS: ANION GAP 10 MEQ/L (8-16); BLOOD UREA NITROGEN 36 MG/DL (7-18); CALCIUM LEVEL 8.9 MG/DL (8.8-10.2); CARBON DIOXIDE LEVEL 29 MEQ/L (21-32); CHLORIDE LEVEL 103 MEQ/L (98-107); GLOMERULAR FILTRATION RATE 51.7 (>39); GLUCOSE, FASTING 81 MG/DL (70-100); MAGNESIUM LEVEL 2.4 MG/DL (1.8-2.4); NT-PRO BNP 169 PG/ML (<125); PHOSPHORUS LEVEL 4.5 MG/DL (2.5-4.9); POTASSIUM SERUM 3.9 MEQ/L (3.5-5.1); SODIUM LEVEL 142 MEQ/L (136-145)
== END ==
LOC: M SFHCPLAZ 12:21
DX: I50.32 Chronic diastolic (congestive) heart failure (principal)
CPT/HCPCS: 83735

== ENCOUNTER → 2018-04-10 | Outpatient (REF) | payer MEDICARE, OTHER | LOC: M SFHCLERA 11:47 | DX: R19.7 Diarrhea, unspecified (principal) | CPT/HCPCS: 87507 ==

== ENCOUNTER → 2018-05-15 | Outpatient (REF) | payer MEDICARE, OTHER ==
[2018-05-15 15:47] LABS: BASO % 0.5 % (0.0-1.0); EOS # 0.1 10^3/uL (0.0-0.50); EOS % 1.5 % (0.0-3.0); HEMATOCRIT 38.1 % (36.0-47.0); HEMOGLOBIN 12.6 g/dl (12.0-15.5); IMMATURE GRANULOCYTE % 0.2 % (0-3.0); LYMPH # 2.2 10^3/uL (1.5-4.5); LYMPH % 33.2 % (24.0-44.0); MEAN CORPUSCULAR HEMOGLOBIN 28.8 pg (27.0-33.0); MEAN CORPUSCULAR HGB CONC 33.1 g/dl (32.0-36.5); MEAN CORPUSCULAR VOLUME 87.2 fl (80.0-96.0); MONO # 0.6 10^3/uL (0.0-0.8); NEUTROPHILS # 3.6 10^3/uL (1.8-7.7); NEUTROPHILS % 55.6 % (36.0-66.0); PLATELET COUNT, AUTOMATED 238 10^3/uL (150-450); RED BLOOD COUNT 4.37 10^6/uL (4.00-5.40); RED CELL DISTRIBUTION WIDTH 13.9 % (11.5-14.5); RETIC HEMOGLOBIN EQUIVALENT 33.6 pg (24-36); RETICULOCYTE # 46.8 10^9/L (17-77); RETICULOCYTE % 1.1 % (0.5-1.5); WHITE BLOOD COUNT 6.5 10^3/uL (4.0-10.0)
[2018-05-15 15:59] LABS: LACTIC ACID SEPSIS PROTOCOL 0.9 MMOL/L (0.4-2.0)
[2018-05-15 16:08] LABS: ALBUMIN 3.7 GM/DL (3.2-5.2); ALBUMIN/GLOBULIN RATIO 1.09 (1.00-1.93); ALKALINE PHOSPHATASE 46 U/L (45-117); ALT/SGPT 22 U/L (12-78); ANION GAP 9 MEQ/L (8-16); AST/SGOT 18 U/L (7-37); BILIRUBIN,TOTAL 0.7 MG/DL (0.2-1.0); BLOOD UREA NITROGEN 18 MG/DL (7-18); CALCIUM LEVEL 8.9 MG/DL (8.8-10.2); CARBON DIOXIDE LEVEL 30 MEQ/L (21-32); CHLORIDE LEVEL 105 MEQ/L (98-107); GLOMERULAR FILTRATION RATE > 60.0 (>39); GLUCOSE, FASTING 88 MG/DL (70-100); LIPASE 212 U/L (73-393); MAGNESIUM LEVEL 2.3 MG/DL (1.8-2.4); POTASSIUM SERUM 3.5 MEQ/L (3.5-5.1); SODIUM LEVEL 144 MEQ/L (136-145); TOTAL PROTEIN 7.1 GM/DL (6.4-8.2)
[2018-05-18 00:13] LABS: H PYLORI SERUM QUANT IGA <9.0 units (0.0-8.9)
== END ==
LOC: M SFHCPLAZ 14:27
DX: K21.9 Gastro-esophageal reflux disease without esophagitis (principal)
CPT/HCPCS: 83690

== ENCOUNTER → 2019-04-10 | Outpatient (CLI) | payer MEDICARE, BC ==
[~2019-04-10] MED LIST changes: +ASPI81TA26 PO; +ASPI81TAEC PO; +BACT800T5 PO; +BIMA01SOL OU; +CIPR-249 PO; +DIPH2.5T14 PO; +FLAG500T PO; +HYDR-3715 PO; +HYDR25TAB PO; +IRBE75TA5 PO; -ISOVUE-370 76% 100ML VIAL (Q9967) As Ordered; +K-TA10TA2 PO; +KETO10TAB PO; +LIPI10TA PO; +LOMO2.5T PO; +MOME50SP; +OMEP1CAP73 PO; +PAXI10TA12 PO; +PRESCAP PO; +PROAAER10 INH; +SING10TA32 PO; +VITA100066 PO; +VITMTA PO; +[UNRECOGNIZED DRUG - CODE] XX; +[UNRECOGNIZED DRUG - CODE] XX; +[UNRECOGNIZED DRUG - OTHER]; +[UNRECOGNIZED DRUG - OTHER]; +[UNRECOGNIZED DRUG - OTHER] XX; +[UNRECOGNIZED DRUG - SUPPLY]
--- NOTE | 2019-04-10 14:11 | REPMRS ---
Patient History The patient states she has not had a clinical breast exam in over a year. Patient is postmenopausal. Family history of colorectal cancer at age 50 or over in brother, breast cancer under age 50 in niece, breast cancer at age 50 or over in sister, breast cancer at age 50 or over in niece. No Hormone Replacement Therapy 3D TOMOSYNTHESIS WAS PERFORMED. The [facility] lifetime risk for breast cancer is 7.0%. Digital Woman Screen Mammo: April 10, 2019 - Exam #: [id number] Bilateral CC and MLO view(s) were taken. Technologist: Naya Farias, Technologist Prior study comparison: September 29, 2017, right breast digital mammo diagnostic unilateral, performed at [facility]. May 19, 2017, digital woman screen mammo performed at [facility]. FINDINGS: There are scattered fibroglandular densities. There is a fairly symmetric fibroglandular pattern in both breasts. There has been no interval development of masses, areas of architectural distortion or clusters of microcalcifications typical of malignancy. Assessment: BI-RADS/ACR category 2 mammogram. Benign Findings. Recommendation Routine screening mammogram of both breasts in 1 year (for women over age 40). This mammogram was interpreted with the aid of an FDA-approved computer-aided dectection system. Electronically Signed By: Jm Faulkner MD 04/10/19 [id number]
== END ==
LOC: M WHC 10:55
PROVIDERS: ATTEND Nurse Practitioner Women's Health
DX: Z12.31 Encounter for screening mammogram for malignant neoplasm of breast (principal); Z78.0 Asymptomatic menopausal state; Z80.0 Family history of malignant neoplasm of digestive organs; Z80.3 Family history of malignant neoplasm of breast; I50.32 Chronic diastolic (congestive) heart failure; E55.9 Vitamin D deficiency, unspecified; R73.01 Impaired fasting glucose
CPT/HCPCS: 36415; 77063; 77067; 80053; 80061; 82306; 83036; 83735; 83970; 84439; 84443; 85025; 85046; G0463

== ENCOUNTER → 2019-04-10 | Outpatient (REF) | payer MEDICARE, OTHER ==
[~2019-04-10] MED LIST changes: -OMEP1CAP73 PO; +OMEP20CA3 PO
[2019-04-10 11:59] LABS: BASO # 0.1 10^3/uL (0.0-0.2); EOS # 0.2 10^3/uL (0.0-0.50); EOS % 3.7 % (0.0-3.0); HEMATOCRIT 36.4 % (36.0-47.0); HEMOGLOBIN 11.9 g/dl (12.0-15.5); LYMPH # 2.3 10^3/uL (1.5-4.5); LYMPH % 37.2 % (24.0-44.0); MEAN CORPUSCULAR HGB CONC 32.7 g/dl (32.0-36.5); MEAN CORPUSCULAR VOLUME 88.8 fl (80.0-96.0); MONO # 0.5 10^3/uL (0.0-0.8); MONO % 8.4 % (0.0-5.0); NEUTROPHILS # 3.1 10^3/uL (1.8-7.7); NEUTROPHILS % 49.5 % (36.0-66.0); PLATELET COUNT, AUTOMATED 235 10^3/uL (150-450); WHITE BLOOD COUNT 6.2 10^3/uL (4.0-10.0)
[2019-04-10 12:52] LABS: ALBUMIN 3.7 GM/DL (3.2-5.2); BILIRUBIN,TOTAL 0.6 MG/DL (0.2-1.0); CALCIUM LEVEL 9.3 MG/DL (8.8-10.2); CHOLESTEROL RISK RATIO 1.859 (<5); CREATININE FOR GFR 0.97 MG/DL (0.55-1.30); FREE T4 1.02 NG/DL (0.76-1.46); GLOMERULAR FILTRATION RATE 59.6 (>39); MAGNESIUM LEVEL 2.5 MG/DL (1.8-2.4); POTASSIUM SERUM 3.8 MEQ/L (3.5-5.1); PTH INTACT 63.3 PG/ML (18.5-88.0); THYROID STIMULATING HORMONE 1.91 uIU/ML (0.358-3.740); TOTAL 25(OH) VITAMIN D 30.4 NG/ML (30.0-100.0); TOTAL PROTEIN 7.1 GM/DL (6.4-8.2)
[2019-04-10 13:32] LABS: HEMOGLOBIN A1c 5.7 %
== END ==
LOC: M SFHCPLAZ 10:26
PROVIDERS: ATTEND Family Medicine
DX: I50.32 Chronic diastolic (congestive) heart failure (principal); R73.01 Impaired fasting glucose; E78.2 Mixed hyperlipidemia